=== PATIENT | male | born 1940 | race Caucasian/White ===

== ENCOUNTER → 2017-01-13 | Outpatient (CLI) | payer MEDICARE ==
[~2017-01-13] MED LIST: ALBUTEROL0.09 MG/A2 INH; ALLOPURINOL100 MG PO; AMOXIL500 MG PO; ASPERDRINK81 MG PO; ASPIRIN325 MG PO; ATENOLOL100 MG PO; CLONIDINE0.1 MG PO; COUMADIN5 M2 PO; Coumadin5 MG PO; HYDRALAZINE HCL25 MG PO; Hydralazine Hyd25 MG PO; K-Dur 20MEQ20 MEQ PO; LANTUS100 U/ML SC; LASIX20 MG PO; LEVAQUIN750 M1 PO; LISINOPRIL10 M1 PO; Magnesium Oxid400 MG PO; NORVASC5 MG PO; PREDNISONE10 MG PO; PRILOSEC20 MG PO; Ventolin 02.5 MG/3 M NEB; XANAX1 MG PO; XARE15TA PO; ZITHROMAX Z PA250 MG PO
[2017-01-13 14:00] LABS: BILIRUBIN NEGATIVE (NEGATIVE); BLOOD NEGATIVE (NEGATIVE); CLARITY SL CLOUDY (CLEAR); COLOR YELLOW (YELLOW); GLUCOSE NEGATIVE (NEGATIVE); KETONE NEGATIVE (NEGATIVE); LEUKO ESTERASE NEGATIVE (NEGATIVE); NITRITE NEGATIVE (NEGATIVE); PH 5.5 (5.0-9.0); PROTEIN 2+ (NEGATIVE); UROBILINOGEN 0.2 E.U./dl (0.2-1.0)
[2017-01-13 14:03] LABS: BASO % 0.3 % (0.0-1.0); EOS # 0.2 10*3/uL (0.0-0.4); HEMOGLOBIN 13.5 g/dl (14.0-18.0); LYMPH # 1.6 10*3/uL (1.3-4.4); LYMPH % 21.4 % (27.0-41.0); MEAN CELL VOLUME 98.8 fl (80.0-94.0); MEAN CORPUSCULAR HGB 33.3 pg (27.0-31.0); MEAN CORPUSCULAR HGB CONC 33.8 g/dl (33.0-37.0); MEAN PLATELET VOLUME 10.1 fl (9.6-12.3); MONO # 0.5 10*3/uL (0.1-1.0); MONO % 6.3 % (3.0-9.0); NEUT # 5.2 10*3/uL (2.3-7.9); NEUT % 69.5 % (47.0-73.0); PLATELET COUNT AUTOMATED 204 10*3/uL (130-400); RED BLOOD COUNT 4.05 10*6/uL (4.50-5.90); RED CELL DISTRI WIDTH 12.8 % (0-14.5); WHITE BLOOD COUNT 7.5 10*3/uL (4.8-10.8)
[2017-01-13 14:06] LABS: BACTERIA 2+; RBC 0-2 rbc/hpf (0-2)
[2017-01-13 14:08] LABS: URINE TP/CRE RATIO 2.9 (<0.21)
[2017-01-13 14:14] LABS: ALBUMIN 3.5 gm/dl (3.1-4.5); BILIRUBIN, TOTAL 0.9 mg/dl (0.2-1.0); PHOSPHOROUS 3.9 mg/dL (2.5-4.9); POTASSIUM 4.9 mmol/L (3.5-5.1); TOTAL PROTEIN 7.7 gm/dL (6.4-8.2)
== END | disposition home or self-care (01) ==
LOC: LAB 13:23
PROVIDERS: Internal Medicine Nephrology
DX: I12.9 Hypertensive chronic kidney disease with stage 1 through stage 4 chronic kidney disease, or unspecified chronic kidney disease (principal); E11.21 Type 2 diabetes mellitus with diabetic nephropathy; E11.22 Type 2 diabetes mellitus with diabetic chronic kidney disease; N18.4 Chronic kidney disease, stage 4 (severe); R80.0 Isolated proteinuria

== ENCOUNTER → 2018-12-27 | Outpatient (CLI) | payer MEDICARE ==
[~2018-12-27] MED LIST changes: -ASPIRIN325 MG PO; +ASPIRIN81 M1 PO; +Lasix80 MG PO; +PEPCID20 MG PO; +SODIUM BICARBO650 MG PO; +ZITHROMAX500 MG PO
[2018-12-27 13:40] VITALS: BP 135/74
[2018-12-27 14:06] LABS: BASO % 0.2 % (0.0-1.0); HEMATOCRIT 30.1 % (42.0-52.0); LYMPH # 0.4 10*3/uL (1.3-4.4); LYMPH % 6.6 % (27.0-41.0); MEAN CELL VOLUME 101.3 fl (80.0-94.0); MEAN CORPUSCULAR HGB 33.7 pg (27.0-31.0); MEAN CORPUSCULAR HGB CONC 33.2 g/dl (33.0-37.0); MEAN PLATELET VOLUME 10.7 fl (9.6-12.3); MONO # 0.4 10*3/uL (0.1-1.0); MONO % 7.5 % (3.0-9.0); NEUT # 4.7 10*3/uL (2.3-7.9); NEUT % 85.2 % (47.0-73.0); PLATELET COUNT AUTOMATED 77 10*3/uL (130-400); RED BLOOD COUNT 2.97 10*6/uL (4.50-5.90); RED CELL DISTRI WIDTH 13.9 % (0-14.5); WHITE BLOOD COUNT 5.5 10*3/uL (4.8-10.8)
[2018-12-27 14:42] LABS: ALBUMIN 3.6 gm/dl (3.1-4.5); CREATININE 4.42 mg/dL (0.70-1.30); PHOSPHOROUS 3.7 mg/dL (2.5-4.9); POTASSIUM 3.7 mmol/L (3.5-5.1)
[2018-12-27 15:03] LABS: VITAMIN D, 25-HYDROXY 28.2 ng/mL (30-100)
[2018-12-27 15:04] LABS: FERRITIN 233.7 ng/mL (22.0-322.0); PTH INTACT 455.4 pg/mL (18.5-88.0)
[2018-12-27 15:25] LABS: BILIRUBIN NEGATIVE (NEGATIVE); BLOOD NEGATIVE (NEGATIVE); CLARITY CLEAR (CLEAR); COLOR YELLOW (YELLOW); GLUCOSE NEGATIVE (NEGATIVE); KETONE NEGATIVE (NEGATIVE); LEUKO ESTERASE NEGATIVE (NEGATIVE); NITRITE NEGATIVE (NEGATIVE); UROBILINOGEN 0.2 E.U./dl (0.2-1.0)
[2018-12-27 15:34] LABS: BACTERIA 1+; EPITHELIAL CELLS 0-2; URINE CREATININE RANDOM 51.2 mg/dL; WBC 0-2 wbc/hpf (0-5)
[2018-12-28 05:11] LABS: HEPATITIS B SURFACE AB 006395 Non Reactive (.); HEPATITIS B SURFACE AG Negative (Negative)
== END | disposition home or self-care (01) ==
LOC: LAB 13:22
PROVIDERS: Internal Medicine Nephrology
DX: Z01.89 Encounter for other specified special examinations (principal); I12.0 Hypertensive chronic kidney disease with stage 5 chronic kidney disease or end stage renal disease; E11.22 Type 2 diabetes mellitus with diabetic chronic kidney disease; D63.1 Anemia in chronic kidney disease; N18.5 Chronic kidney disease, stage 5; E11.21 Type 2 diabetes mellitus with diabetic nephropathy; N25.81 Secondary hyperparathyroidism of renal origin; R60.9 Edema, unspecified; E87.2 Acidosis; Z79.899 Other long term (current) drug therapy

== ENCOUNTER → 2019-01-24 | Outpatient (CLI) | payer MEDICARE ==
[2019-01-24 12:13] VITALS: BP 109/61
== END | disposition home or self-care (01) ==
LOC: INJECTION 01:11
DX: I13.0 Hypertensive heart and chronic kidney disease with heart failure and stage 1 through stage 4 chronic kidney disease, or unspecified chronic kidney disease (principal); E11.22 Type 2 diabetes mellitus with diabetic chronic kidney disease; E11.21 Type 2 diabetes mellitus with diabetic nephropathy; N18.9 Chronic kidney disease, unspecified; I50.9 Heart failure, unspecified; D63.1 Anemia in chronic kidney disease; I48.91 Unspecified atrial fibrillation; N25.81 Secondary hyperparathyroidism of renal origin; Z79.899 Other long term (current) drug therapy

== ENCOUNTER → 2019-01-24 | Outpatient (CLI) | payer MEDICARE ==
[2019-01-24 12:32] LABS: BASO % 0.2 % (0.0-1.0); EOS # 0.1 10*3/uL (0.0-0.4); EOS % 1.1 % (1.0-4.0); HEMATOCRIT 37.6 % (42.0-52.0); HEMOGLOBIN 12.3 g/dl (14.0-18.0); LYMPH # 2.1 10*3/uL (1.3-4.4); LYMPH % 25.9 % (27.0-41.0); MEAN CELL VOLUME 98.7 fl (80.0-94.0); MEAN CORPUSCULAR HGB 32.3 pg (27.0-31.0); MEAN CORPUSCULAR HGB CONC 32.7 g/dl (33.0-37.0); MEAN PLATELET VOLUME 10.4 fl (9.6-12.3); MONO # 0.8 10*3/uL (0.1-1.0); MONO % 9.7 % (3.0-9.0); NEUT # 5.1 10*3/uL (2.3-7.9); NEUT % 62.7 % (47.0-73.0); PLATELET COUNT AUTOMATED 204 10*3/uL (130-400); RED BLOOD COUNT 3.81 10*6/uL (4.50-5.90); RED CELL DISTRI WIDTH 14.5 % (0-14.5); WHITE BLOOD COUNT 8.2 10*3/uL (4.8-10.8)
[2019-01-24 13:01] LABS: ALBUMIN 3.6 gm/dl (3.1-4.5); POTASSIUM 3.9 mmol/L (3.5-5.1)
[2019-01-24 13:04] LABS: CREATININE 5.25 mg/dL (0.70-1.30); PHOSPHOROUS 4.7 mg/dL (2.5-4.9)
[2019-01-24 13:17] LABS: FERRITIN 83.9 ng/mL (22.0-322.0); PTH INTACT 412.9 pg/mL (18.5-88.0); VITAMIN D, 25-HYDROXY 33.7 ng/mL (30-100)
[2019-01-24 13:31] LABS: BILIRUBIN NEGATIVE (NEGATIVE); BLOOD NEGATIVE (NEGATIVE); CLARITY SL CLOUDY (CLEAR); COLOR YELLOW (YELLOW); GLUCOSE NEGATIVE (NEGATIVE); KETONE NEGATIVE (NEGATIVE); LEUKO ESTERASE NEGATIVE (NEGATIVE); NITRITE NEGATIVE (NEGATIVE); PH 5.5 (5.0-9.0); SPECIFIC GRAVITY 1.015 (1.005-1.030); UROBILINOGEN 0.2 E.U./dl (0.2-1.0)
[2019-01-24 15:07] LABS: CALCIUM OXALATE CRYSTALS TRACE
[2019-01-25 05:06] LABS: HEPATITIS B SURFACE AB 006395 Non Reactive (.); HEPATITIS B SURFACE AG Negative (Negative)
== END | disposition home or self-care (01) ==
LOC: LAB 11:28
PROVIDERS: Internal Medicine Nephrology
DX: E11.21 Type 2 diabetes mellitus with diabetic nephropathy (principal); E11.22 Type 2 diabetes mellitus with diabetic chronic kidney disease; D63.1 Anemia in chronic kidney disease; N18.5 Chronic kidney disease, stage 5; R53.83 Other fatigue; Z79.899 Other long term (current) drug therapy

== ENCOUNTER → 2019-02-28 | Outpatient (CLI) | payer MEDICARE ==
[2019-02-28 12:04] LABS: BASO % 0.4 % (0.0-1.0); EOS # 0.1 10*3/uL (0.0-0.4); HEMATOCRIT 30.1 % (42.0-52.0); HEMOGLOBIN 9.7 g/dl (14.0-18.0); LYMPH % 12.9 % (27.0-41.0); MEAN CELL VOLUME 97.7 fl (80.0-94.0); MEAN CORPUSCULAR HGB 31.5 pg (27.0-31.0); MEAN CORPUSCULAR HGB CONC 32.2 g/dl (33.0-37.0); MEAN PLATELET VOLUME 9.9 fl (9.6-12.3); MONO # 0.7 10*3/uL (0.1-1.0); MONO % 8.4 % (3.0-9.0); NEUT # 6.1 10*3/uL (2.3-7.9); NEUT % 76.8 % (47.0-73.0); PLATELET COUNT AUTOMATED 194 10*3/uL (130-400); RED BLOOD COUNT 3.08 10*6/uL (4.50-5.90); RED CELL DISTRI WIDTH 14.6 % (0-14.5); WHITE BLOOD COUNT 7.9 10*3/uL (4.8-10.8)
[2019-02-28 12:37] LABS: ALBUMIN 3.6 gm/dl (3.1-4.5); CREATININE 4.9 mg/dL (0.70-1.30); PHOSPHOROUS 4.4 mg/dL (2.5-4.9); POTASSIUM 3.6 mmol/L (3.5-5.1)
[2019-03-05 09:50] LABS: HEPATITIS B SURFACE AB 006395 Non Reactive (.); HEPATITIS B SURFACE AG Negative (Negative); HEPATITIS C VIRUS ANTIBODY <0.1 s/co (0.0-0.9)
== END | disposition home or self-care (01) ==
LOC: LAB 11:31
PROVIDERS: Internal Medicine Nephrology
DX: Z11.59 Encounter for screening for other viral diseases (principal); N18.5 Chronic kidney disease, stage 5; R53.83 Other fatigue

== ENCOUNTER → 2019-03-24 | Outpatient (CLI) | payer MEDICARE ==
[2019-03-24 12:39] LABS: BILIRUBIN NEGATIVE (NEGATIVE); BLOOD NEGATIVE (NEGATIVE); CLARITY CLEAR (CLEAR); COLOR YELLOW (YELLOW); GLUCOSE NEGATIVE (NEGATIVE); KETONE NEGATIVE (NEGATIVE); LEUKO ESTERASE NEGATIVE (NEGATIVE); NITRITE NEGATIVE (NEGATIVE); PH 6.5 (5.0-9.0); UROBILINOGEN 0.2 E.U./dl (0.2-1.0)
[2019-03-24 12:41] LABS: BASO % 0.4 % (0.0-1.0); EOS # 0.4 10*3/uL (0.0-0.4); EOS % 4.6 % (1.0-4.0); HEMATOCRIT 31.1 % (42.0-52.0); HEMOGLOBIN 9.6 g/dl (14.0-18.0); LYMPH # 1.1 10*3/uL (1.3-4.4); LYMPH % 14.8 % (27.0-41.0); MEAN CELL VOLUME 99.4 fl (80.0-94.0); MEAN CORPUSCULAR HGB 30.7 pg (27.0-31.0); MEAN CORPUSCULAR HGB CONC 30.9 g/dl (33.0-37.0); MEAN PLATELET VOLUME 10.7 fl (9.6-12.3); MONO # 0.8 10*3/uL (0.1-1.0); MONO % 10.5 % (3.0-9.0); NEUT # 5.3 10*3/uL (2.3-7.9); NEUT % 69.4 % (47.0-73.0); PLATELET COUNT AUTOMATED 200 10*3/uL (130-400); RED BLOOD COUNT 3.13 10*6/uL (4.50-5.90); RED CELL DISTRI WIDTH 14.8 % (0-14.5); WHITE BLOOD COUNT 7.7 10*3/uL (4.8-10.8)
[2019-03-24 12:45] LABS: EPITHELIAL CELLS 16-20; RBC 0-2 rbc/hpf (0-2); WBC 0-2 wbc/hpf (0-5)
[2019-03-24 13:05] LABS: ALBUMIN 3.8 gm/dl (3.1-4.5); POTASSIUM 3.8 mmol/L (3.5-5.1)
[2019-03-24 13:14] LABS: CREATININE 5.39 mg/dL (0.70-1.30); PHOSPHOROUS 4.5 mg/dL (2.5-4.9)
[2019-03-24 13:37] LABS: FERRITIN 56.9 ng/mL (22.0-322.0); PTH INTACT 309.5 pg/mL (18.5-88.0); VITAMIN D, 25-HYDROXY 41.7 ng/mL (30-100)
[2019-03-25 06:10] LABS: HEPATITIS B SURFACE AB 006395 Non Reactive (.); HEPATITIS B SURFACE AG Negative (Negative)
== END | disposition home or self-care (01) ==
LOC: LAB 11:17
PROVIDERS: Internal Medicine Nephrology
DX: E11.22 Type 2 diabetes mellitus with diabetic chronic kidney disease (principal); E11.21 Type 2 diabetes mellitus with diabetic nephropathy; N18.5 Chronic kidney disease, stage 5; D63.1 Anemia in chronic kidney disease; N25.81 Secondary hyperparathyroidism of renal origin; Z79.899 Other long term (current) drug therapy; R53.83 Other fatigue

== ENCOUNTER 2019-04-18 15:56 | Inpatient (IN) | payer MEDICARE ==
[~2019-04-18] VITALS: Ht 187.9 cm; Wt 103.9 kg
--- NOTE | ~2019-04-18 | CON ---
[place], [place] REPORT OF CONSULTATION NAME: [id number] UNIT #: [id number] ROOM: 410 DOCTOR: PIPE SPENCER BIRTHDATE: [birth year] DOS: 04/18/2019 RENAL CONSULTATION REASON FOR CONSULTATION: Chronic kidney disease. HISTORY OF PRESENT ILLNESS: The patient is a pleasant 78-year-old male with prior history of atrial fibrillation. Apparently, he denies this as a history, but it is clearly documented as part of his history, and in fact, he is in atrial fibrillation at present, and history of hypertension, type 2 diabetes mellitus and stage 5 chronic kidney disease, for which he follows with Dr. Torres in our office. He has had a fistula created several months ago in his left arm. He has not required renal replacement therapy as of yet. He presented to this institution at the request of his daughter per the patient today due to dyspnea. The patient states this has been an ongoing issue for the past year to the point where he can only walk a very short distance, perhaps the length of the room before becoming short of breath with markedly fatigue. Again, he describes this as being something that has been present for the past year, though when I pointed out to him that he did not bring this to anyone's attention when seen by Dr. Torres recently in a recent office visit in December which followed a hospital admission several weeks earlier. He claims that he was feeling well then, but then shortly afterward symptoms recurred. He notes he is compliant with his diuretics, but does not follow his fluid restrictions nor does he limit his sodium intake in his diet that he has been instructed to do. He does state he has been urinating less well than usual over the past several months, which coincides along with the above described fatigue and also describes a decreased appetite over the same length of time. For the above symptoms, again seemingly coinciding when he describes worsening shortness of breath with exertion. He denies any other specific uremic symptoms. He denies any URI symptoms, fevers, chills, rigors or diaphoresis. When seen in the ED, he had a chest x-ray performed, which showed pulmonary edema. EKG showed atrial fibrillation. He was afebrile, hemodynamically stable. Admitting lab work showed a white count of 7.9 and hemoglobin 9.3. He had a potassium of 4.0, bicarbonate of 24, glucose of 124 with a BUN and creatinine of 117 and 8.87. He is currently seen and the initial troponin was 0.145. He is currently seen in the Emergency Room, lying flat in bed and states he feels fine, but again notes that he is typically fine with rest and with recumbency. PAST MEDICAL HISTORY: See above. ALLERGIES: Listed to IODINE. CURRENT MEDICATIONS: Heparin 5000 units subcutaneously b.i.d. SOCIAL HISTORY: He resides at home. FAMILY HISTORY: Noncontributory. REVIEW OF SYSTEMS: Please see HPI. Full 10-point review of systems was performed and was unremarkable except noted in the HPI. [place], [place] REPORT OF CONSULTATION NAME: WALDO FARMER UNIT #: [id number] ROOM: [employer] DOCTOR: SPENCER BETANCUR DO BIRTHDATE: [birth year] PHYSICAL EXAMINATION: VITAL SIGNS: Blood pressure 138/70, pulse 73, respiration 21, temperature is 97.9 degrees Fahrenheit. GENERAL APPEARANCE: An obese male, awake, alert, oriented x 3, currently in no apparent distress. HEENT: Conjunctivae are pink and moist. Oral mucosa is pink and moist. NECK: There is no JVD or carotid bruit, thyromegaly or adenopathy appreciated. LUNGS: Diminished at the bases, but otherwise clear to auscultation and percussion. HEART: Irregularly irregular. An S3 or rub could not be appreciated. Murmur was not appreciated on examination. ABDOMEN: Soft, protuberant, positive bowel sounds x 4, nontender, without CVA tenderness noted. No rebound, guarding or rigidity noted. No abdominal or flank bruits appreciated. NEUROLOGIC: Grossly nonfocal. No asterixis. EXTREMITIES: No clubbing or cyanosis. He has anasarca appreciated. Pulses are +2 bilateral radial as well as dorsalis pedis. SKIN: Warm and dry. There is a left arm AV fistula noted with thrill and bruit present. LABORATORY DATA: From today, WBC 7.9, hemoglobin 9.3, hematocrit 29.7, platelets 191,000. Sodium is 138, potassium 4.0, chloride 98, CO2 of 24, BUN 117, creatinine 8.9, glucose is 124, magnesium 2.9, calcium is 8.6, albumin of 3.5, total protein 7.8. ALT is 12, AST is 19, alkaline phosphatase is 85, total bilirubin 0.6. ASSESSMENT AND PLAN: 1. Chronic kidney disease, stage V. Volume is currently increased. He appears well compensated at rest, just received 80 mg of intravenous Lasix. Electrolytes are satisfactory. Equivocal uremic signs and symptoms. 2. Hypoxemia, appears to be related to volume overload. Consider treating momentarily with intravenous Lasix. 3. Hypertension. Blood pressure is under satisfactory control. RECOMMENDATIONS: Agree with ongoing management. We would aggressively diurese this patient; however, I would have a low threshold to initiate renal replacement therapy in this patient, and in fact, I suspect this will be needed as mentioned, but we will continue to treat conservatively for the moment. Thank you for allowing us to participate in the care of the patient. [place], [place] REPORT OF CONSULTATION NAME: WALDO FARMER UNIT #: [id number] ROOM: 410 DOCTOR: SPENCER BETANCUR DO BIRTHDATE: [birth year] SPENCER BETANCUR DO CM:CONSTR:REPORT OF CONSULTATION [id number] SANJIV [email or web address].NORA
--- NOTE | ~2019-04-18 | EKG ---
[place], [place] ELECTROCARDIOGRAM REPORT NAME: WALDO FARMER UNIT #: [id number] ROOM: 407 DOCTOR: MARY ANNE DRAFT REPORT BIRTHDATE: [birth year] [facility] [place] [facility] Test Date: 2019-04-18 Test Time: 21:41:21 Pat Name: WALDO FARMER Department: Room: 407 Gender: M Cow Buyer: Magdalene Story : 1940 Requested By: RAJANI VIRAMONTES Order Number: [id number] Reading MD: Dannie Wilkinson Measurements Intervals [place] Rate: 76 P: [place]: QRS: 64 QRSD: 104 T: 241 QT: 549 QTc: 618 Interpretive Statements Atrial fibrillation Low voltage, extremity leads Nonspecific T abnormalities, lateral leads Prolonged QT interval Compared to ECG 12/08/2018 18:57:49 T-wave abnormality now present Electronically Signed On 04-20-2019 11:08:37 PDT by Dannie Wilkinson CM:EKGRPT:ELECTROCARDIOGRAM REPORT 1108 RAJANI RIVERA DRAFT REPORT RAJANI VIRAMONTES DO
--- NOTE | ~2019-04-18 | EKG ---
[place], [place] ELECTROCARDIOGRAM REPORT NAME: WALDO FARMER UNIT #: [id number] ROOM: 407 DOCTOR: MARY ANNE DRAFT REPORT BIRTHDATE: [birth year] [facility] Test Date: 2019-04-18 Test Time: 18:54:19 Pat Name: WALDO FARMER Department: Room: 407 Gender: M Direct Marketing Analyst: Magdalene Story : 1940 Requested By: RAJANI VIRAMONTES Order Number: [id number] Reading MD: Dannie Wilkinson Measurements Intervals [place] Rate: 76 P: [place]: QRS: 65 QRSD: 100 T: -58 QT: 500 QTc: 563 Interpretive Statements Atrial fibrillation Ventricular premature complex Low voltage, extremity leads Borderline repolarization abnormality Prolonged QT interval Compared to ECG 12/08/2018 18:57:49 Ventricular premature complex(es) now present Electronically Signed On 04-20-2019 11:07:51 PDT by Dannie Wilkinson CM:EKGRPT:ELECTROCARDIOGRAM REPORT [id number] RAJANI RIVERA DRAFT REPORT RAJANI VIRAMONTES DO
--- NOTE | ~2019-04-18 | PR ---
[place], [place] PROGRESS NOTE NAME: WALDO FARMER UNIT #: [id number] ROOM: 410 DOCTOR: TRE QUIÑONEZ MD BIRTHDATE: [birth year] DOS: 04/22/2019 REASON FOR VISIT: Pulmonary edema, atrial fibrillation. HISTORY OF PRESENT ILLNESS: The patient is feeling better. He had dialysis yesterday and today. Denies any chest pain or palpitation, no PND, no orthopnea, no palpitations or dizziness. REVIEW OF SYSTEMS: Review of 10 systems negative except as mentioned above. PHYSICAL EXAMINATION: VITAL SIGNS: Blood pressure 127/62, pulse 70, respiratory rate 18, weight 105 kilos, BMI 30. RHYTHM STRIPS: The patient in atrial fibrillation with controlled ventricular rate. GENERAL: Alert, comfortable, in no acute distress. HEENT: Pupils are round and equal. No jaundice. Tongue was moist and pharynx clear. CHEST: Symmetrical, nontender. LUNGS: Clear to auscultation, slightly diminished at bases. HEART: Irregularly irregular, grade 1/6 systolic murmur. ABDOMEN: Benign, nontender. Bowel sounds normal. EXTREMITIES: Showed 1+ edema bilaterally. Distal pulses palpable. SKIN: Warm and dry. No cyanosis, no clubbing. RECTAL: Deferred. GENITOURINARY: Deferred. NEUROLOGIC: The patient is alert with no focal neurologic deficit. REVIEW OF DIAGNOSTIC TESTS, LABS AND MEDICATIONS: Reviewed. Hemoglobin is 7.9, BUN 88, creatinine 7.3. IMPRESSION: 1. Acute diastolic heart failure, has a pulmonary edema, improved. 2. Chronic atrial fibrillation, controlled ventricular rate. The patient was not on oral anticoagulation due to intolerance in the past, on aspirin. 3. End-stage renal disease, on hemodialysis. 4. Hypertension, stable. 5. Chronic anemia. RECOMMENDATIONS: 1. The patient is stable from the cardiac standpoint. 2. Cardiology will see as needed and he will follow up with [facility] in 2 to 4 weeks after discharge. 3. The patient and his who is at bedside and all questions were answered. [place], [place] PROGRESS NOTE NAME: WALDO FARMER UNIT #: [id number] ROOM: 410 DOCTOR: TRE QUIÑONEZ MD BIRTHDATE: [birth year] TRE QUIÑONEZ MD CM:EVANGELISTA [phone] TRE QUIÑONEZ MD 04/23/19 0510 interface
--- NOTE | ~2019-04-18 | EKG ---
[place], [place] ELECTROCARDIOGRAM REPORT NAME: WALDO FARMER UNIT #: [id number] ROOM: 407 DOCTOR: MARY ANNE DRAFT REPORT BIRTHDATE: [birth year] [facility] Test Date: 2019-04-18 Test Time: 15:59:10 Pat Name: WALDO FARMER Department: Room: 407 Gender: M Library Circulation Department Chief: : 1940 Requested By: RAJANI VIRAMONTES Order Number: [id number] Reading MD: Dannie Wilkinson Measurements Intervals [place] Rate: 81 P: [place]: QRS: 68 QRSD: 104 T: QT: 443 QTc: 515 Interpretive Statements Atrial fibrillation Low voltage, extremity leads Borderline repolarization abnormality Prolonged QT interval Compared to ECG 12/08/2018 18:57:49 No significant changes Electronically Signed On 04-21-2019 11:52:10 PDT by Dannie Wilkinson CM:EKGRPT:ELECTROCARDIOGRAM REPORT [id number] RAJANI RIVERA DRAFT REPORT RAJANI VIRAMONTES DO
--- NOTE | ~2019-04-18 | PR ---
[place], [place] PROGRESS NOTE NAME: WALDO FARMER UNIT #: [id number] ROOM: 407 DOCTOR: TRE QUIÑONEZ MD BIRTHDATE: [birth year] DOS: 04/20/2019 CARDIOLOGY PROGRESS NOTE REASON FOR VISIT: Congestive heart failure. HISTORY OF PRESENT ILLNESS: The patient is somewhat feeling better. He did make some urine since yesterday. Less short of breath. No PND, no orthopnea. No chest pains, no palpitations or dizziness. No syncope. No nausea or vomiting. REVIEW OF SYSTEMS: Review of 10 systems negative except as mentioned above. PHYSICAL EXAMINATION: VITAL SIGNS: Blood pressure 121/56, pulse 62, respiratory rate was 16, weight 102 kilos. RHYTHM STRIPS: The patient in sinus rhythm. PHYSICAL EXAMINATION: GENERAL: Alert, comfortable, in no acute distress. HEENT: Pupils are round and equal. No jaundice. Tongue was moist and pharynx clear. NECK: Supple, no distended neck veins. No carotid bruit. CHEST: Symmetrical, nontender. LUNGS: A few scattered rhonchi, diminished at bases. HEART: Regular rate and rhythm, no S3, no palpable thrills. ABDOMEN: Nontender. Bowel sounds normal. EXTREMITIES: Showed 2+ pitting edema. Distal pulses palpable. SKIN: Warm and dry. No cyanosis, no clubbing. RECTAL: Deferred. GENITOURINARY: Deferred. NEUROLOGIC: Alert with no focal neurologic deficit. MEDICATIONS AND LABS: Reviewed. IMPRESSION: 1. Acute heart failure with preserved ejection fraction due to volume overload. 2. End-stage renal disease. 3. Paroxysmal atrial fibrillation. 4. Hypertension. RECOMMENDATIONS: 1. Continue current medications. 2. The patient was not on oral anticoagulation due to intolerance. 3. ____. 4. No further cardiac testing except outpatient Lexiscan stress test in about a month. 5. Cardiology will see as needed. 6. The patient will be undergoing hemodialysis for fluid removal. [place], [place] PROGRESS NOTE NAME: WALDO FARMER UNIT #: [id number] ROOM: 407 DOCTOR: TRE QUIÑONEZ MD BIRTHDATE: [birth year] The above treatment plans were discussed with the patient and his family member who is at bedside. TRE QUIÑONEZ MD CM:EVANGELISTA [id number] TRE QUIÑONEZ MD 04/21/19 1151 interface
--- NOTE | ~2019-04-18 | CON ---
[place], [place] REPORT OF CONSULTATION NAME: WALDO FARMER UNIT #: [id number] ROOM: 407 DOCTOR: OLAMIDE KRISHNATRE BIRTHDATE: [birth year] DOS: 04/19/2019 CARDIOLOGY CONSULTATION REASON FOR CONSULTATION: Congestive heart failure. HISTORY OF PRESENT ILLNESS: The patient is a 78-year-old with history of chronic kidney disease, anemia, atrial fibrillation presented to the Emergency Room for increasing shortness of breath for the past few weeks. He had history of chronic kidney disease. He had an AV graft/fistula done for potential dialysis in the near future. He was admitted for congestive heart failure, pulmonary edema and Cardiology consulted for further recommendations. The patient had some minimal urine output at home. He denies any PND or orthopnea. No nausea or vomiting. No chest pains. No fever and chills. No palpitation or dizziness. His main complaint is progressive shortness of breath with lower extremity edema. His shortness of breath is mostly exertional. History of atrial fibrillation few years ago. He was on "Xarelto" per his daughter. He is off of anticoagulation a couple of years ago due to severe intolerance. He denies any chest pain. Breathing is somewhat better on oxygen but still had some respiratory distress, mild. Denies any cough, fever. He denies any chest pains or PND. REVIEW OF SYSTEMS: Review of 10 systems negative except as mentioned above. PAST MEDICAL HISTORY: 1. Paroxysmal atrial fibrillation, not on oral anticoagulation due to "intolerance." 2. Chronic kidney disease, stage 5. 3. Hypertension. 4. Diastolic heart failure. 5. Gout. 6. Chronic anemia. PAST SURGICAL HISTORY: History of cholecystectomy, history of hernia repair, history of left total knee replacement. SOCIAL HISTORY: The patient does not drink, does not smoke, does not use illicit drugs. FAMILY HISTORY: Father from heart attack at age 62. ALLERGIES: Reviewed. HOME MEDICATIONS: Reviewed. PHYSICAL EXAMINATION: VITAL SIGNS: Blood pressure 110/58, pulse 72, respirations 16, weight 102 kg, BMI 29. GENERAL: Alert, comfortable, in mild respiratory distress due to shortness of breath. [place], [place] REPORT OF CONSULTATION NAME: WALDO FARMER UNIT #: [id number] ROOM: [facility] DOCTOR: OLAMIDE KRISHNA,TRE BIRTHDATE: [birth year] HEENT: Pupils are round and equal. No jaundice. Tongue was moist and pharynx clear. NECK: Supple, no distended neck veins, no carotid bruit. CHEST: Symmetrical, nontender. LUNGS: Diminished at both bases. HEART: Regular rhythm, no S3. Grade 1/6 systolic murmur at the right sternal border. No palpable thrills. ABDOMEN: Slightly distended. Bowel sounds normal, nontender. EXTREMITIES: Showed 1-2+ pitting edema bilaterally. Distal pulses are fair. SKIN: Warm and dry. No cyanosis, no clubbing. RECTAL: Deferred. GENITOURINARY: Deferred. NEUROLOGIC: The patient is alert with no focal neurologic deficit. PSYCHIATRIC: The patient is alert with good mood and affect. MUSCULOSKELETAL: No joint tenderness or swelling. REVIEW OF THE DIAGNOSTIC TESTS: EKG showed atrial fibrillation with nonspecific ST T changes. CBC, chemistry reviewed. Hemoglobin 8.6, creatinine 9.1, potassium 3.8. Cardiac troponins are 0.145, 0.142, 0.137, trending down. His troponin was elevated in 12/2018 admission. Echo from 12/2018 showed EF of 60%, LV hypertrophy. Echo from 03/2011 showed mild heart disease with EF 68%. HOME MEDICATIONS: Reviewed. IMPRESSION: 1. Acute heart failure with preserved ejection fraction. 2. Pulmonary edema. 3. Borderline elevation of troponin, likely due to his chronic kidney disease. 4. Hypertension. 5. Paroxysmal atrial fibrillation. 6. End-stage renal disease. 7. Chronic anemia. 8. Left ventricular hypertrophy. RECOMMENDATIONS: 1. Continue Lasix, monitor urine output. 2. The patient has significant urine output. He will need hemodialysis to remove the fluids. 3. The patient's family, daughter at bedside and she is aware of risk of thromboembolic events without anticoagulation for his atrial fibrillation and therefore, they would like to stay on aspirin. 4. His blood pressure and heart rates are stable. 5. No further cardiac testing at this time except I would recommend Lexiscan stress test either prior to discharge or as an outpatient. 6. The case was also discussed with stat threshing machine operator, Dr. Torres. [place], [place] REPORT OF CONSULTATION NAME: WALDO FARMER UNIT #: [id number] ROOM: [facility] DOCTOR: OLAMIDE KRISHNA,TRE BIRTHDATE: [birth year] TRE QUIÑONEZ MD CM:CONSTR:REPORT OF CONSULTATION 1701 04/20/19 1314 interface
[2019-04-18 16:00] VITALS: BP 127/62
[2019-04-18 16:18] LABS: BASO % 0.1 % (0.0-1.0); EOS % 0.5 % (1.0-4.0); HEMATOCRIT 29.7 % (42.0-52.0); HEMOGLOBIN 9.3 g/dl (14.0-18.0); LYMPH # 1.1 10*3/uL (1.3-4.4); LYMPH % 14.1 % (27.0-41.0); MEAN CELL VOLUME 93.4 fl (80.0-94.0); MEAN CORPUSCULAR HGB 29.2 pg (27.0-31.0); MEAN CORPUSCULAR HGB CONC 31.3 g/dl (33.0-37.0); MEAN PLATELET VOLUME 10.2 fl (9.6-12.3); MONO # 0.7 10*3/uL (0.1-1.0); MONO % 8.2 % (3.0-9.0); NEUT % 76.7 % (47.0-73.0); PLATELET COUNT AUTOMATED 191 10*3/uL (130-400); RED BLOOD COUNT 3.18 10*6/uL (4.50-5.90); RED CELL DISTRI WIDTH 14.7 % (0-14.5); WHITE BLOOD COUNT 7.9 10*3/uL (4.8-10.8)
[2019-04-18 16:35] LABS: ALBUMIN 3.5 gm/dl (3.1-4.5); CREATININE 8.87 mg/dL (0.70-1.30); TOTAL PROTEIN 7.8 gm/dL (6.4-8.2)
[2019-04-18 16:38] LABS: TROPONIN I 0.145 ng/ml (<0.045)
[2019-04-18 17:00] VITALS: BP 138/70
[2019-04-18 18:00] VITALS: BP 121/54
--- NOTE | 2019-04-18 19:09 | NUR ---
REPORT FROM HÉCTOR CHAIREZ AT THIS TIME
--- NOTE | 2019-04-18 19:33 | NUR ---
DR HERNANDEZ ALREADY AWARE OF CONSULT
--- NOTE | 2019-04-18 19:41 | NUR ---
CRITICAL TAKEN, TROPONIN 0.142, DR ROSS NOTIFIED.
[2019-04-18 20:39] VITALS: BP 112/49
--- NOTE | 2019-04-18 20:54 | NUR ---
PER PATIENT, CARDIOLOGY IN TO SEE PATIENT EARLIER
[2019-04-18] MEDS ORDERED: FAMOTIDINE20 M1 PO (20:59)
--- NOTE | 2019-04-18 21:00 | NUR ---
MEDICATION RECONCILLIATION COMPLETED AT THIS TIME AT BEDSIDE WITH PATIENT
--- NOTE | 2019-04-18 21:22 | NUR ---
DR HILARIA ARCHER PATIENT REQUEST FOR SLEEPING PILL.
--- NOTE | 2019-04-18 22:26 | NUR ---
DR MARK NOTIFIED OF CRITICAL TROPONIN OF 0.137
[2019-04-19 04:45] VITALS: BP 123/53
--- NOTE | 2019-04-19 04:45 | NUR ---
A 78, admitted to 4E, under the services of GEORGINA Pérez DO with a diagnosis of ACUTE CHF. Chief complaint is SHORTNESS OF BREATH. Patient arrived via bed from ER. Monitor applied. Initial assessment completed. Vital signs taken and recorded. GEORGINA PÉREZ DO notified of admission to the unit. Orders received. See assessment for past medical history, medications and allergies. Patient and/or family oriented to unit. [facility] visitation policy reviewed. Clothing/patient valuable form completed. REMI DIAZ
[2019-04-19 06:35] LABS: BASO % 0.2 % (0.0-1.0); EOS # 0.1 10*3/uL (0.0-0.4); HEMATOCRIT 27.7 % (42.0-52.0); HEMOGLOBIN 8.6 g/dl (14.0-18.0); LYMPH # 0.8 10*3/uL (1.3-4.4); LYMPH % 13.8 % (27.0-41.0); MEAN CELL VOLUME 93.6 fl (80.0-94.0); MEAN CORPUSCULAR HGB 29.1 pg (27.0-31.0); MEAN PLATELET VOLUME 10.2 fl (9.6-12.3); MONO # 0.6 10*3/uL (0.1-1.0); MONO % 10.2 % (3.0-9.0); NEUT # 4.4 10*3/uL (2.3-7.9); NEUT % 74.6 % (47.0-73.0); PLATELET COUNT AUTOMATED 165 10*3/uL (130-400); RED BLOOD COUNT 2.96 10*6/uL (4.50-5.90); RED CELL DISTRI WIDTH 14.5 % (0-14.5); WHITE BLOOD COUNT 5.9 10*3/uL (4.8-10.8)
[2019-04-19 06:45] LABS: CREATININE 9.1 mg/dL (0.70-1.30); POTASSIUM 3.8 mmol/L (3.5-5.1)
[2019-04-19 08:00] VITALS: BP 110/58
[2019-04-19 12:00] VITALS: BP 129/69
--- NOTE | 2019-04-19 12:19 | NUR ---
DR SHEEHAN IN TO SPEAK WITH PT DAUGHTER PER HER REQUEST.
--- NOTE | 2019-04-19 15:25 | NUR ---
DR HERNANDEZ ROUNDED AND SEEN PT. PER DR HERNANDEZ PT WILL PROBABLY START DIALYSIS TOMORROW.
[2019-04-19 16:00] VITALS: BP 107/52
[2019-04-19 20:00] VITALS: BP 110/52
[2019-04-20] VITALS: BP 116/56
[2019-04-20 05:32] VITALS: BP 98/46
[2019-04-20 06:35] LABS: ALBUMIN 3.3 gm/dl (3.1-4.5); CREATININE 9.33 mg/dL (0.70-1.30); PHOSPHOROUS 7.8 mg/dL (2.5-4.9); POTASSIUM 3.6 mmol/L (3.5-5.1); TOTAL PROTEIN 7.3 gm/dL (6.4-8.2)
[2019-04-20 06:39] LABS: BASO % 0.2 % (0.0-1.0); EOS # 0.1 10*3/uL (0.0-0.4); EOS % 2.3 % (1.0-4.0); HEMATOCRIT 26.9 % (42.0-52.0); HEMOGLOBIN 8.2 g/dl (14.0-18.0); LYMPH # 0.9 10*3/uL (1.3-4.4); LYMPH % 15.4 % (27.0-41.0); MEAN CELL VOLUME 93.1 fl (80.0-94.0); MEAN CORPUSCULAR HGB 28.4 pg (27.0-31.0); MEAN CORPUSCULAR HGB CONC 30.5 g/dl (33.0-37.0); MEAN PLATELET VOLUME 10.5 fl (9.6-12.3); MONO # 0.6 10*3/uL (0.1-1.0); NEUT # 4.1 10*3/uL (2.3-7.9); NEUT % 70.9 % (47.0-73.0); PLATELET COUNT AUTOMATED 158 10*3/uL (130-400); RED BLOOD COUNT 2.89 10*6/uL (4.50-5.90); RED CELL DISTRI WIDTH 14.6 % (0-14.5); WHITE BLOOD COUNT 5.7 10*3/uL (4.8-10.8)
[2019-04-20 07:00] LABS: FERRITIN 56.9 ng/mL (22.0-322.0); PTH INTACT 541.9 pg/mL (18.5-88.0); VITAMIN D, 25-HYDROXY 43.9 ng/mL (30-100)
[2019-04-20 08:00] VITALS: BP 121/56
[2019-04-20 12:00] VITALS: BP 102/50
[2019-04-20 16:00] VITALS: BP 117/53
--- NOTE | 2019-04-20 18:02 | NUR ---
PT'S FAMILY LEFT AFTER VISITING MOST OF THE DAY AND PT BECOMING ANXIOUS ABOUT WANTING TO LEAVE THE HOSPITAL. PT ASSISTED UP INTO BED. REASSURANCE GIVEN. PT MEDICATED WITH XANAX 0.5MG PO AT THIS TIME.
--- NOTE | 2019-04-20 19:52 | NUR ---
PATIENT IS RESTING IN CHAIR WITH EASY AND REGULAR RESPERS ON ROOM AIR. ASSESSMENT IS COMPLETE WITH NO C/O OR S/S OF DISTRESS NOTED. BODY ALARM IS ATTACHED AND CALL LIGHT IS WITHIN REACH, SEE SHIFT ASSESSMENT.
[2019-04-20 20:00] VITALS: BP 106/62
[2019-04-21] VITALS: BP 114/56
--- NOTE | 2019-04-21 07:34 | NUR ---
Shift chart check completed.24 HR chart check completed. Bedside report from Uriel, pt slept throughout.
[2019-04-21 07:40] LABS: BASO % 0.2 % (0.0-1.0); EOS # 0.1 10*3/uL (0.0-0.4); EOS % 1.8 % (1.0-4.0); HEMATOCRIT 26.2 % (42.0-52.0); HEMOGLOBIN 7.9 g/dl (14.0-18.0); LYMPH # 0.7 10*3/uL (1.3-4.4); LYMPH % 10.3 % (27.0-41.0); MEAN CELL VOLUME 94.9 fl (80.0-94.0); MEAN CORPUSCULAR HGB 28.6 pg (27.0-31.0); MEAN CORPUSCULAR HGB CONC 30.2 g/dl (33.0-37.0); MEAN PLATELET VOLUME 10.3 fl (9.6-12.3); MONO # 0.7 10*3/uL (0.1-1.0); MONO % 10.9 % (3.0-9.0); NEUT % 76.6 % (47.0-73.0); PLATELET COUNT AUTOMATED 137 10*3/uL (130-400); RED BLOOD COUNT 2.76 10*6/uL (4.50-5.90); RED CELL DISTRI WIDTH 14.6 % (0-14.5); WHITE BLOOD COUNT 6.5 10*3/uL (4.8-10.8)
[2019-04-21 08:08] LABS: CREATININE 9.09 mg/dL (0.70-1.30); POTASSIUM 3.7 mmol/L (3.5-5.1)
[2019-04-21 08:15] VITALS: BP 100/50
--- NOTE | 2019-04-21 09:00 | NUR ---
Fiberglass Product Tester in to talk to patient. Patient states lives at home with alone. There are few steps in the home. Physician: sloan [facility] Home health services: none Patient's level of ADLs: INDEPENDENT Patient has working utilities: all working DME: none Follow-up physician's appointment after d/c: will be made by hospitalist nurse director upon discharge Does patient want to access PORTAL?: no Discharge plan discussed with patient, daughter present, he states he lives at home alone, is independent in adls and ambulation until the last few days, drives, discussed with them a short term [facility] for [facility]hab prior to returning home, patient declined, stated he would be returning home when able, also discussed with them VNA and patient declines this also, case management will follow. DAPHNE ROD
--- NOTE | 2019-04-21 11:41 | NUR ---
DIALYSIS HAS BEEN CALLED TO GET AN ESTIMATED TIME FOR DIALYSIS AND PT AND HIS DAUGHTER HAS BEEN NOTIFIED.
[2019-04-21 12:00] VITALS: BP 105/62
--- NOTE | 2019-04-21 12:20 | NUR ---
REPORT TO DIALYSIS NURSE VIA PHONE.
--- NOTE | 2019-04-21 14:06 | NUR ---
PT WAS TRANSPORTED VIA BED TO HEMODIALYSIS ROOM AT 1230.
--- NOTE | 2019-04-21 14:15 | NUR ---
Patient not available for Occupational Therapy evaluation as he is in dialysis Sushila Carias OTR/L
--- NOTE | 2019-04-21 14:15 | NUR ---
PHYSICAL THERAPY Physical therapy evaluation attempted. Patient out of room for dialysis at this time. Will return to attempt PT evaluation at a later date. Thank you. Janae Ling,PT,DPT.
--- NOTE | 2019-04-21 15:14 | NUR ---
DAUGHTER UPDATED ON PT'S DIALYSIS TREATMENT TODAY, AND THAT ANOTHER PLANNED FOR TOMORROW MORNING.
--- NOTE | 2019-04-21 15:44 | NUR ---
ESCORTED BACK TO THE FLOOR FROM DIALYSIS.
[2019-04-21 16:00] VITALS: BP 137/68
--- NOTE | 2019-04-21 16:46 | NUR ---
I NOTIFIED DR HANNA OF THE AMOUNT OF BLADDER SCAN AND QUESTIONED LASIX ADMINISTRATION. DR HANNA WILL ADDRESS THE ISSUE.
--- NOTE | 2019-04-21 18:19 | NUR ---
PTS DAUGHTER CALLED ME, SAID SHE'D BEEN TALKING TO THE PATIENT ON THE PHONE AND REQUESTED I GIVE PT A XANAX, WHICH I DID. WHEN I ASKED HE SAID "I HAVE NO IDEA" WHEN I ASKED IF HE KNEW WHERE HE WAS. BED IS IN LOW POSITION WITH WHEELS LOCKED AND BED EXIT ALARM ACTIVE.
--- NOTE | 2019-04-21 18:27 | NUR ---
IV LASIX GIVEN AFTER DR HANNA DISCUSSED WITH RENAL RESIDENT.
--- NOTE | 2019-04-21 18:42 | NUR ---
WITHIN 15 MINUTES PT ATTEMPTING TO GET OUT OF BED, THINKS HE NEEDS TO GO TO BR. INSISTED ON AMBULATING TO THE BATHROOM, HE'S UNSTEADY. WOULDN'T LET ME STAY IN THE BATHROOM WITH HIM. I ASKED HIM TO USE THE URINAL SO IT COULD BE MEASURED BUT HE DID NOT. HE CLAIMED HE URINATED IN THE TOILET AND HAD A BOWEL MOVEMENT. I WALKED HIM BACK TO BED, MADE SURE HE HAD HIS CALL LIGHT AND REACTIVATED THE BED EXIT ALARM.
[2019-04-21 20:00] VITALS: BP 124/65
--- NOTE | 2019-04-21 20:24 | NUR ---
24 HR chart check completed.
--- NOTE | 2019-04-21 21:00 | NUR ---
RESTING IN BED WITH NO ACUTE DISTRESS NOTED. RESPIRATIONS EASY. LUNGS DIMINISHED, CLEAR. PULSE OX 90% RA. +1 PITTING BLE, TUBI-WET PROCESS MILLER APPLIED. CALL LIGHT WITHIN REACH. NO VOICED COMPLAINTS. BED ALARM IN PLACE FOR SAFETY
[2019-04-22] VITALS: BP 129/62
--- NOTE | 2019-04-22 | NUR ---
SLEEPING. NO DISTRESS NOTED. RESPIRATIONS EASY. VSS. CALL LIGHT WITHIN REACH
--- NOTE | 2019-04-22 06:00 | NUR ---
SLEPT THROUGHOUT NIGHT WITH NO DISTRESS NOTED. RESPIRATIONS EASY. CALL LIGHT WITHIN REACH. NO VOICED COMPLAINTS THIS SHIFT
--- NOTE | 2019-04-22 06:56 | NUR ---
MEDICATED WITH XANAX PRIOR TO DIALYSIS TO ASSIST WITH ANXIETY. WILL MONITOR
--- NOTE | 2019-04-22 07:15 | NUR ---
TRANSPORTED VIA BED TO DIALYSIS.
[2019-04-22 07:27] LABS: BASO % 0.2 % (0.0-1.0); EOS # 0.1 10*3/uL (0.0-0.4); EOS % 1.5 % (1.0-4.0); HEMOGLOBIN 7.9 g/dl (14.0-18.0); LYMPH # 0.7 10*3/uL (1.3-4.4); LYMPH % 11.1 % (27.0-41.0); MEAN CELL VOLUME 94.5 fl (80.0-94.0); MEAN CORPUSCULAR HGB 28.7 pg (27.0-31.0); MEAN CORPUSCULAR HGB CONC 30.4 g/dl (33.0-37.0); MEAN PLATELET VOLUME 10.8 fl (9.6-12.3); MONO # 0.7 10*3/uL (0.1-1.0); MONO % 12.4 % (3.0-9.0); NEUT # 4.4 10*3/uL (2.3-7.9); NEUT % 74.6 % (47.0-73.0); PLATELET COUNT AUTOMATED 134 10*3/uL (130-400); RED BLOOD COUNT 2.75 10*6/uL (4.50-5.90); RED CELL DISTRI WIDTH 14.6 % (0-14.5); WHITE BLOOD COUNT 5.9 10*3/uL (4.8-10.8)
--- NOTE | 2019-04-22 07:31 | NUR ---
PATIENT TO HEMODIALYSIS PRIOR TO MY RECEIVING BEDSIDE REPORT ON HIM. Shift chart check completed.24 HR chart check completed.
[2019-04-22 07:56] LABS: CREATININE 7.31 mg/dL (0.70-1.30); POTASSIUM 3.8 mmol/L (3.5-5.1)
[2019-04-22 08:09] LABS: HEPATITIS B SURFACE AG Negative (Negative); HEPATITIS C VIRUS ANTIBODY 0.1 s/co (0.0-0.9)
--- NOTE | 2019-04-22 09:00 | NUR ---
case management visits with patient, patient states he will be returning home when able. discussed with him VNA and he declines any home needs
--- NOTE | 2019-04-22 10:32 | NUR ---
CONSULT FOR GARCIA GARCIA/PALLIATIVE CARE CALLED TO PALLIATIVE CARE.
--- NOTE | 2019-04-22 10:43 | NUR ---
PT REMAINS OFF THE FLOOR IN HEMODIALYSIS.
--- NOTE | 2019-04-22 10:48 | NUR ---
REPORT FROM , PT DID WELL. REMOVED 2.3 KG. FOR ANOTHER TREATMENT TOMORROW, THEN WILL BE SUN-SUN-SUN.
--- NOTE | 2019-04-22 10:52 | NUR ---
Patient not available for occupational therapy evaluation as he is in dialysis. Sushila Carias OTR/L
--- NOTE | 2019-04-22 10:53 | NUR ---
PHYSICAL THERAPY Physical therapy evaluation attempted. Patient out of room for dialysis. Will try again at a later time/date. Thank you. Janae Ling,PT,DPT
--- NOTE | 2019-04-22 11:32 | NUR ---
Faxed palliative care order to [facility] and notified palliative care nurseCristina
--- NOTE | 2019-04-22 11:32 | NUR ---
Another Multi-Disciplinary Team meeting was held on 04/22/19, for the purpose of discharge planning. The patient was referred to the following services for follow-up:patient will be returning home in a couple days, he will have dialysis treatment on Sunday and his dialysis days will be Sunday and Sunday at the dialysis clinic [facility]
[2019-04-22 12:00] VITALS: BP 134/60
--- NOTE | 2019-04-22 12:25 | NUR ---
case management received a call from patient's daughter Oliva, she stated her dad was having difficulty getting around at home with a walker prior to being admitted to the hospital, she states he lives at home with his girlfriend and the girlfriend has a had time helping him, Oliva stated she would like her dad to go to a short term group home prior to returning home, explained to her that patient has to agree to go to a short term group home or he can't be referred to transferred to one. daughter stated understanding and stated she or her sister would be here today to talk with patient regarding going to a SNF
--- NOTE | 2019-04-22 12:41 | NUR ---
Patient/family requesting referrral to [facility] for rehab. contacted [facility] and faxed initial referral. Will fax physical therapy eval when patient is able to participate.
--- NOTE | 2019-04-22 13:12 | NUR ---
GIRLFRIEND TO THE DESK CLAIMING PT "BREATHING HARD". ON ASSESSMENT HE'S RESTING WITH HIS EYES CLOSED AND DENIES ANY DISCOMFORT OR DIFFICULTY.
--- NOTE | 2019-04-22 14:41 | NUR ---
PHYSICAL THERAPY Physical therapy evaluation completed. Full details and evaluation to follow. Low complexity skilled PT evaluation performed (60728). PT will work on strength, balance, transfers, and gait per POC. Recommend SNF at discharge. Thank you, Etta Joya,SPT Janae Ling,PT,DPT.
--- NOTE | 2019-04-22 14:41 | NUR ---
Occupational Therapy evaluation completed on 4 with full eval to follow. Precautions include fall risk acute debility, bed/chair alarm, impaired cognition,high complexity level 79139 via chart review, testing and evaluation. Recommend OT per pOC and SNF to enable return home alone at independent level. Thank you. Felice Carias OTR/l
--- NOTE | 2019-04-22 14:59 | NUR ---
THERAPY SERVICES IN TO SEE PATIENT FOR EVALUATION. HE IS IN RECLINER CHAIR AT THE BEDSIDE WITH BODY ALARM ATTACHED. HE'S READING THE NEWSPAPER.
--- NOTE | 2019-04-22 15:54 | NUR ---
PT WAS ASSISTED BY STAFF TO AMBULATE INTO THE BATHROOM. HE WILL NOT COOPERATE TO USE A URINAL. AFTER HE CAME OUT OF THE BATHROOM THERE WAS URINE ON THE TOILET AND THE FLOOR, UNMEASURABLE. HE IS BACK INTO CHAIR WITH HIS BODY ALARM ATTACHED.
[2019-04-22 16:00] VITALS: BP 136/59
--- NOTE | 2019-04-22 16:15 | NUR ---
PT REMAINS CONFUSED, NEEDING FREQUENT REMINDERS OF WHERE HE IS AND WHY HE'S HERE.
--- NOTE | 2019-04-22 17:11 | NUR ---
MEDICATED WITH TYLENOL FOR BILATERAL KNEE PAIN. TRANSFERRED TO 410 TO BE CLOSER TO THE DESK AND BECAUSE ROOM MATE WAS UPSET WHEN BED EXIT/BODY ALARM WOULD GO OFF.
--- NOTE | 2019-04-22 17:39 | NUR ---
VISITOR TO THE DESK SAYING PT NEEDS "SOMETHING STRONGER THAN TYLENOL FOR HIS KNEE PAIN". DR MAYS NOTIFIED.
--- NOTE | 2019-04-22 18:18 | NUR ---
XANAX PER FAMILY REQUEST BECAUSE PT WANTING TO LEAVE WITH THEM.
--- NOTE | 2019-04-22 18:24 | NUR ---
PT IN BED WITH WHEELS LOCKED. BED EXIT ALARM ACTIVATED.
--- NOTE | 2019-04-22 19:17 | NUR ---
IS CURRENTLY RESTING WITH HIS EYES CLOSED AND RESPIRATIONS NON-LABORED SINCE EARLIER XANAX AND TYLENOL.
[2019-04-22 20:00] VITALS: BP 106/49
--- NOTE | 2019-04-22 20:21 | NUR ---
1944 RESTING IN BED WITH EYES CLOSED. APPEARS TO BE SLEEPING. CALL LIGHT IN REACH. NO DISTRESS NOTED. HEP LOCK INTACT. BED ALARM INTACT.
--- NOTE | 2019-04-22 21:11 | NUR ---
2014 BED ALARM GOING OFF. UP TO BR WITH WALKER AND [address] AND TIME. DOES NOT ANSWER QUESTIONS APPROPRIATELY. UP TO CHAIR PER REQUEST. REFUSES TO GO BACK TO BED. 2114 [place] 1 PO FOR C/O'S BILATERAL KNEE PAIN,. BACK TO BED. SIDE RAILS UP X'S 2. BED ALARM INTACT. CALL LIGHT IN REACH.
--- NOTE | 2019-04-22 21:56 | NUR ---
EARLIER PAIN MED EFFECTIVE,. RESTING IN BED WITH EYES CLOSED. APPEARS TO BE SLEEPING.
--- NOTE | 2019-04-22 22:16 | NUR ---
REMAINS SLEEPING WITHOUT DISTRESS. CONDITION GUARDED.
[2019-04-23] VITALS: BP 120/61
--- NOTE | 2019-04-23 02:44 | NUR ---
24 HR chart check completed.
[2019-04-23 06:23] LABS: CREATININE 5.6 mg/dL (0.70-1.30)
[2019-04-23 07:18] LABS: BASO % 0.2 % (0.0-1.0); EOS # 0.1 10*3/uL (0.0-0.4); EOS % 1.6 % (1.0-4.0); HEMATOCRIT 27.8 % (42.0-52.0); HEMOGLOBIN 8.2 g/dl (14.0-18.0); LYMPH # 0.7 10*3/uL (1.3-4.4); LYMPH % 10.8 % (27.0-41.0); MEAN CELL VOLUME 96.9 fl (80.0-94.0); MEAN CORPUSCULAR HGB 28.6 pg (27.0-31.0); MEAN CORPUSCULAR HGB CONC 29.5 g/dl (33.0-37.0); MEAN PLATELET VOLUME 10.6 fl (9.6-12.3); MONO # 0.9 10*3/uL (0.1-1.0); MONO % 13.8 % (3.0-9.0); NEUT # 4.7 10*3/uL (2.3-7.9); NEUT % 73.1 % (47.0-73.0); PLATELET COUNT AUTOMATED 117 10*3/uL (130-400); RED BLOOD COUNT 2.87 10*6/uL (4.50-5.90); RED CELL DISTRI WIDTH 14.5 % (0-14.5); WHITE BLOOD COUNT 6.4 10*3/uL (4.8-10.8)
--- NOTE | 2019-04-23 07:41 | NUR ---
Additional clinicals and therapy evals faxed to [facility]. 3 night stay complete.
[2019-04-23 08:00] VITALS: BP 118/80
--- NOTE | 2019-04-23 09:00 | NUR ---
OT NOTE Patient seen for 20 minutes of occupational therapy treatment. Patient was supine in bed upon arrival and was agreeable to treatment. Patient performed bed mobility to seated EOB with supervision. While seated, patient donned socks with Max A, patient would benefit from AE education. Patient educated on safe hand placement prior to functional sit/stand with good carryover. Patient performed functional mobility around room to recliner with ww and CGA. When seated, patient required Mod A to don/doff his brief. Patient was able to assist with threading bilateral lower extremities with verbal cues for completion of task. The functional sit/stand to complete lower body dressing required Min Ax2. While seated, patient performed grooming tasks with supervision. Patient was A&O to self only. Patient was re-oriented to place and time. Patient was seated in recliner upon conclusion of OT treatment. Patient would benefit from continued OT treatment to maximize independence in ADLs and functional mobility/transfers. Lilia Thorpe, OTR/L
--- NOTE | 2019-04-23 09:24 | NUR ---
PHYSICAL THERAPY PT SIDE LYING IN BED WITH BED ALRAM ON UPON ARRIVAL. PT IDENTIFIED BY NAME AND . PT AGREED TO ALL PHYSICAL THERAPY TREATMENT THIS VISIT. PT PERFORMED SIDE LYING TO SITTING EOB WITH MODa X1 AND USE OF ONE HAND RAIL. PT PERFORMED STS FROM EOB TO FWW WITH Acosta X2 WITH VC'S FOR SAFETY AND TECHNIQUE. PT GAIT TRAINED 10FT X 1 WITH CGA AND VC'S FOR POSTURE. PT HAD A SLOW STEADY GAIT WITH A FLAT FOOT NO HEEL TOE GAIT. PT PERFORMED STS TO RELCINER WITH UNSAFE "PLOP" AND VC'S FOR SAFETY AND PROPER TECHNIQUE. PT THEN PERFORMED STS FROM RECLINER TO FWW AND THEN FWW TO RECLINER WITH Acosta X2 WITH VC'S FOR SAFETY. PT SITTING IN RECLINER WITH BODY ALARM ON AND TRAY WITH BREAKFAST INFROM OF PT. PTS CALL LIGHT ON BED TO PTS LEFT WITH IN ARMS REACH. PT REPORTS NO OTHER NEEDS AT THIS TIME. PT SEEN 1:1 FOR 16MIN. RENA MARROQUIN PTA
--- NOTE | 2019-04-23 09:31 | NUR ---
Patient has been accepted to [facility], hospital exemption complete, 3 night stay complete, patient is ok to go when medically stable for discharge.
--- NOTE | 2019-04-23 11:00 | NUR ---
case management visits with patient, two daughters are present. discussed the discharge plan of patient going to [facility] for senior living for rehab, all were in agreement. case management contacted [facility] regarding if patient has been set up to start going to their facility, per Elsie, she wanted case management to fax patient's information, patient's information faxed, will follow up on if patient is set up at [facility]
[2019-04-23 12:00] VITALS: BP 107/67
--- NOTE | 2019-04-23 12:34 | NUR ---
Medicated with norco per prn order for complaints of back pain and bl knee pain.
--- NOTE | 2019-04-23 13:15 | NUR ---
States that percocet was effective for back pain and knee pain.
--- NOTE | 2019-04-23 13:30 | NUR ---
Pt taken off floor for dialysis.
--- NOTE | 2019-04-23 16:54 | NUR ---
Pt remains off floor in dialysis.
[2019-04-23 17:00] VITALS: BP 106/42
--- NOTE | 2019-04-23 17:45 | NUR ---
Returned from dialysis. See assessment.
[2019-04-23 20:00] VITALS: BP 122/63
[2019-04-24] VITALS: BP 113/70
[2019-04-24 06:06] LABS: CREATININE 3.8 mg/dL (0.70-1.30); POTASSIUM 3.8 mmol/L (3.5-5.1)
[2019-04-24 06:08] LABS: BASO % 0.1 % (0.0-1.0); EOS % 0.4 % (1.0-4.0); HEMOGLOBIN 8.6 g/dl (14.0-18.0); LYMPH # 0.6 10*3/uL (1.3-4.4); LYMPH % 7.5 % (27.0-41.0); MEAN CORPUSCULAR HGB 28.5 pg (27.0-31.0); MEAN CORPUSCULAR HGB CONC 29.7 g/dl (33.0-37.0); MEAN PLATELET VOLUME 10.7 fl (9.6-12.3); MONO # 0.9 10*3/uL (0.1-1.0); MONO % 11.7 % (3.0-9.0); NEUT # 6.3 10*3/uL (2.3-7.9); NEUT % 79.9 % (47.0-73.0); PLATELET COUNT AUTOMATED 139 10*3/uL (130-400); RED BLOOD COUNT 3.02 10*6/uL (4.50-5.90); RED CELL DISTRI WIDTH 14.6 % (0-14.5); WHITE BLOOD COUNT 7.9 10*3/uL (4.8-10.8)
--- NOTE | 2019-04-24 08:27 | NUR ---
Dr. Mendenhall called in and updated on plan for pt. Notified that it is expected that pt will be dc today to [facility]. Reviewed case management notes.
--- NOTE | 2019-04-24 09:23 | NUR ---
OT NOTE PATIENT SEEN FOR 15 MINUTE OT SESSION THIS DAY AND IDENTIFIED BY NAME AND . PATIENT SEATED IN RECLINER UPON ARRIVAL. STS WITH CGA/MIN A. 3LO2 ON PORTABLE TANK AT THIS TIME TO COMPLETE RESTROOM ACTIVITIES. PATIENT ABLE TO COMPLETE FUNCTIONAL MOBILITY WITH WW AT CGA. FUNCTIONAL TOILET TRANSFER WITH MIN A FOR STS USING GRAB BAR. PATIENT ABLE TO DELANEY PANTS WITH MOD A TO THREAD LE'S AND PULL UP IN BACK. PATIENT STAND TO SIT REQUIRED VERBAL CUES FOR HAND PLACEMENT. PATIENT ENDED SESSION SEATED IN RECLINER WITH ALL ITEMS IN PLACE. CONTINUE CURRENT POC AND D/C PLAN TO HOME WITH SON. GAYE PERRY MAGGIE/Derick
--- NOTE | 2019-04-24 09:28 | NUR ---
PHYSICAL THERAPY Patient presented to therapy in sitting in bedside chair with chair alarm attached and 3 liters of spO2 VIA NASAL CANULA. Patient was identifed by name and on wristband. Patient gives informed consent for treatment. Patient performed sit to stand transfer with MIN A X 1 with verbal cues for pushing off armrests with hands. Patient stood at Walker for 1 minute with no LOB or other difficulty with CGA. Patient performed ambulation with Walker and CGA X 2 WITH 3 LITERS OF spO2 via nasal canula for 20' x 1 to rest room with seated restbreak. Patient then sit to stand from low chair with MOD A X 2 with verbal cues for hand placement and push off. Patient ambulated another 20' x 1 to bed side chair with CGA X 2. Patient transferred to bedside chair with MIN A X 2. Patient was left in bedside chair with call light within reach, chair alarm tested and attached to patient, and LEs elevated. Patient was 1:1 with this UTILIZATION REVIEWER for 20 minutes total. KIKE KAUR UTILIZATION REVIEWER
--- NOTE | 2019-04-24 09:30 | NUR ---
case management contacted Eben at [facility] regarding if patient is set up to go to their facility for dialysis, Eben stated he spoke to Rachelle at [facility] and confirmed that patient will go to Dialysis Sunday, and Sunday and chair time is 6am, nothing needed for case management
[2019-04-24] MEDS ORDERED: NATURE'S BLEND F1 MG PO (10:19)
[2019-04-24] MEDS ORDERED: ALPRAZOLAM0.5 M3 PO (10:19)
[2019-04-24] MEDS ORDERED: HYDROCODONE-AC1 EAC1 PO (10:19)
--- NOTE | 2019-04-24 11:01 | NUR ---
Patient is discharged to [facility], transportation scheduled for 1 PM with [facility]. NE, nursing/shop steward and daughter Malinda notified.
[2019-04-24 12:00] VITALS: BP 115/56
--- NOTE | 2019-04-24 13:02 | NUR ---
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 Significant other and daughter present at this time. IV removed.
--- NOTE | 2019-04-24 13:21 | NUR ---
Report called to Sandee at [facility].
--- NOTE | 2019-04-25 07:48 | NUR ---
OCCUPATIONAL THERAPY CO-SIGN I approve of the Occupational Therapy notes written above. ADELE KAYE OTR/Derick
--- NOTE | 2019-04-25 07:50 | NUR ---
PHYSICAL THERAPY CO-SIGN I approve of the Physical Therapy notes written above. CHAPIN KRISHNAMURTHY PT, DPT
== END 2019-04-24 13:21 | disposition other institution (70) | DRG 682 ==
LOC: ED 15:56 → 4E 17:26 → EDHOLD 17:26 → 4E 04-19 04:12
PROVIDERS: Family Medicine; Internal Medicine; Internal Medicine Nephrology; Student in an Organized Health Care Education/Training Program; ADMIT Emergency Medicine
PROC: 5A1D70Z Performance of Urinary Filtration, Intermittent, Less than 6 Hours Per Day (ICD-10-PCS; principal; 2019-04-20)
PROC: 5A1D70Z Performance of Urinary Filtration, Intermittent, Less than 6 Hours Per Day (ICD-10-PCS; 2019-04-21)
DX: N17.0 Acute kidney failure with tubular necrosis (principal); I50.33 Acute on chronic diastolic (congestive) heart failure; J96.00 Acute respiratory failure, unspecified whether with hypoxia or hypercapnia; I13.2 Hypertensive heart and chronic kidney disease with heart failure and with stage 5 chronic kidney disease, or end stage renal disease; N18.6 End stage renal disease; E83.41 Hypermagnesemia; D64.9 Anemia, unspecified; M25.569 Pain in unspecified knee; G89.29 Other chronic pain; F41.9 Anxiety disorder, unspecified; E11.65 Type 2 diabetes mellitus with hyperglycemia; I48.2 Chronic atrial fibrillation; Z96.653 Presence of artificial knee joint, bilateral; I48.91 Unspecified atrial fibrillation; Z88.9 Allergy status to unspecified drugs, medicaments and biological substances; E11.22 Type 2 diabetes mellitus with diabetic chronic kidney disease; M10.9 Gout, unspecified; E66.9 Obesity, unspecified; Z68.30 Body mass index [BMI] 30.0-30.9, adult; Z90.49 Acquired absence of other specified parts of digestive tract; Z72.89 Other problems related to lifestyle; Z83.3 Family history of diabetes mellitus; Z82.49 Family history of ischemic heart disease and other diseases of the circulatory system

== ENCOUNTER 2019-04-28 09:45 | Inpatient (IN) | payer MEDICARE ==
[2019-04-28] VITALS (7 sets, daily range): BP systolic 101–125; BP diastolic 48–63
[~2019-04-28] VITALS: Ht 185.4 cm; Wt 102.1 kg
[~2019-04-28 09:45] MED LIST changes: +ALPRAZOLAM0.5 M3 PO; +FAMOTIDINE20 M1 PO; +HYDROCODONE-AC1 EAC1 PO; +NATURE'S BLEND F1 MG PO
[2019-04-28 11:20] LABS: BASO % 0.1 % (0.0-1.0); EOS % 0.3 % (1.0-4.0); HEMATOCRIT 27.5 % (42.0-52.0); HEMOGLOBIN 8.5 g/dl (14.0-18.0); LYMPH # 0.8 10*3/uL (1.3-4.4); LYMPH % 11.5 % (27.0-41.0); MEAN CELL VOLUME 93.9 fl (80.0-94.0); MEAN CORPUSCULAR HGB CONC 30.9 g/dl (33.0-37.0); MEAN PLATELET VOLUME 10.1 fl (9.6-12.3); MONO # 0.9 10*3/uL (0.1-1.0); MONO % 13.6 % (3.0-9.0); NEUT # 4.9 10*3/uL (2.3-7.9); NEUT % 74.1 % (47.0-73.0); PLATELET COUNT AUTOMATED 170 10*3/uL (130-400); RED BLOOD COUNT 2.93 10*6/uL (4.50-5.90); RED CELL DISTRI WIDTH 15.2 % (0-14.5); WHITE BLOOD COUNT 6.7 10*3/uL (4.8-10.8)
[2019-04-28 11:30] LABS: ACT PARTIAL THROMBO TIME 26.6 SECONDS (20.0-32.1)
[2019-04-28 11:38] LABS: ALBUMIN 2.9 gm/dl (3.1-4.5); CREATININE 5.04 mg/dL (0.70-1.30); POTASSIUM 4.2 mmol/L (3.5-5.1); TOTAL PROTEIN 7.7 gm/dL (6.4-8.2)
[2019-04-28 11:58] LABS: TROPONIN I 0.067 ng/ml (<0.045)
--- NOTE | 2019-04-28 11:58 | NUR ---
TROPONIN 0.067 DR MTZ NOTIFIED
[2019-04-28] MEDS ORDERED: AMLODIPINE BESY10 MG PO (12:11)
--- NOTE | 2019-04-28 12:37 | NUR ---
UNABLE TO TRANSPORT PT TO ROOM AT THIS TIME D/T ROOM NEEDING CLEANED.
--- NOTE | 2019-04-28 13:19 | NUR ---
A 78, admitted to , under the services of GARRETT Cintron MD with a diagnosis of CHF, KIDNEY FAILURE. Chief complaint is MULTIPLE COMPLAINTS. Patient arrived via bed from ER. Monitor applied. Initial assessment completed. Vital signs taken and recorded. DR. REZA KRISHNA,GARRETT notified of admission to the unit. Orders received. See assessment for past medical history, medications and allergies. Patient and/or family oriented to unit. [facility] visitation policy reviewed. Clothing/patient valuable form completed. JAVIER MARCIAL
--- NOTE | 2019-04-28 14:59 | NUR ---
DR. HERNANDEZ ANSWERING SERVICE NOTIFIED OF CONSULT.
--- NOTE | 2019-04-28 15:33 | NUR ---
NOTIFIED OF CONSULT.
--- NOTE | 2019-04-28 23:06 | NUR ---
24 HR chart check completed.
[2019-04-29] VITALS: BP 109/84
--- NOTE | 2019-04-29 06:45 | NUR ---
BED ALARM SOUNDED, UPON ENTERING ROOM PATIENT SITTING UP AT SIDE OF BED. BLOOD NOTED ON SHEET AND GOWN. NEW SKIN TEAR FOUND ON RIGHT ELBOW AND STILL BLEEDING. PT. ALERT AND ORIENTED X3. PT. ASSURE THIS RN HE WOULD SIT AND READ HIS NEWPAPER UNTIL THIS RN RETURNED WITH WOUND CARE ITEMS. PASSED ROOM ONCE WHILE OBTAINING SUPPLIES AND PATIENT WAS STILL SITTING AT SIDE OF BED.
--- NOTE | 2019-04-29 06:45 | NUR ---
NEW SKIN TEAR NOTED ON RIGHT ELBOW. GOWN AND BEDLINENS TO BE CHANGED. WILL NOTIFIED WOUND CARE AND DOCTOR.
--- NOTE | 2019-04-29 06:50 | NUR ---
WHILE CHARTING HEARD A LOUD THUD COME FROM PATIENTS ROOM. PATIENT FOUND ON FLOOR WITH LACERATION ABOVE R EYE. PATIENT ASSISTED TO CHAIR AND VITAL SIGNS OBTAINED. PATIENT ASSISTED BACK TO BED.
--- NOTE | 2019-04-29 06:52 | NUR ---
UPON ENTERING ROOM RN WAS APPLYING PRESSURE TO RIGHT FOREHEAD EYE AREA WITH 4X4. PATIENT WAS MOVED TO CHAIR. VS OBTAINED. EXAMINED PATIENT FOR ANY OTHER WOUNDS. WHEN ASKED IF ANYTHING ELSE WAS HURT AND PT. STATED "NO, I JUST HIT MY HEAD OFF THE DOOR HANDLE". PATIENT ATTENDANTS WERE ATTENDING TO PATIENT CLEANING HIM UP AND PUTTING PATIENT BACK TO BED WITH BED ALARM. RIGHT EYE PUPIL NOT REACTING TO LIGHT PATIENT STATED THAT HE HAD A "FISHHOOK CAUGHT IN THAT EYE YEARS AGO AND IT WAS ALWAYS VERY SLUGGISH TO LIGHT". NO LOC. LARGE LACERATION NOTED ABOVE RIGHT EYE ON EYEBROW WITH EDEMA AROUND EYE ECCHYMOTIC. SCLERA WHITE. 0708 CALL NURSING ENTERPR[employer] SYSTEMS ARCHITECT NOTIFIED HER OF PT. FALL AND CALLED DR. CHOWDHURY AND NOTIFIED HIM OF FALL AND PT. CONDITION. ORDERS RECEIVED. 07 CALL DAUGHTER BEN KRUEGER AND NOTIFIED HER OF PT. FALL AND SHE SAID SHE WOULD BE HERE IN 10 MINUTES. CALLED [facility]OUND CARE NURSE AND SHE CAME TO SEE PATIENT. 07 DR. HANNA HERE AND EXAMINED PT. ORDER FOR CT ORBITS ALSO TO BE DONE. PT. WENT TO CT FOR HEAD AND ORBITS EXAM. 0735 DAUGHTER HERE ON UNIT AND AGAIN EXPLAINED WHAT HAPPEND. 0810 PATIENT WAS BACK FROM CT IN BED WITH BED ALARM ON AND DAUGHTER AT BEDSIDE. DR. LYNN HERE AND EXAMINING PATIENT FOR POSSIBLE SUTURES TO THE RIGHT EYE LACERATION.
[2019-04-29 06:55] VITALS: BP 132/61
[2019-04-29 08:00] VITALS: BP 127/72
[2019-04-29 08:07] LABS: BASO % 0.2 % (0.0-1.0); EOS # 0.1 10*3/uL (0.0-0.4); HEMATOCRIT 28.4 % (42.0-52.0); HEMOGLOBIN 8.6 g/dl (14.0-18.0); LYMPH # 0.7 10*3/uL (1.3-4.4); LYMPH % 10.7 % (27.0-41.0); MEAN CELL VOLUME 94.7 fl (80.0-94.0); MEAN CORPUSCULAR HGB 28.7 pg (27.0-31.0); MEAN CORPUSCULAR HGB CONC 30.3 g/dl (33.0-37.0); MEAN PLATELET VOLUME 9.7 fl (9.6-12.3); MONO # 0.7 10*3/uL (0.1-1.0); MONO % 11.6 % (3.0-9.0); NEUT # 4.6 10*3/uL (2.3-7.9); PLATELET COUNT AUTOMATED 195 10*3/uL (130-400); RED CELL DISTRI WIDTH 15.4 % (0-14.5); WHITE BLOOD COUNT 6.1 10*3/uL (4.8-10.8)
--- NOTE | 2019-04-29 08:08 | NUR ---
WALDO FARMER [id number] Please refer to the physician's history and physical for past medical history, comorbid conditions, and allergies. Diagnosis: CHF CONFUSION CHRONIC KIDNEY DISEASE ON CHRONIC Clarence Score: 18,AT RISK WOUND DESCRIPTIONS: Wound Number: 1 Location of the wound: right forehead above eye Type of wound: laceration Thickness: Full Size: 1.5cm x 1.0cm x 0.1cm Tunneling: none Undermining: none Sinus Tract: none Presence of Exudate: Sanguineous Amount: Moderate Color: Red Odor: None Periwound Skin Appearance: Normal Wound edges: approximated Pain (associated with wound): none at time assessment. How does patient state this happened? pt stated he hit his head off the door handle Wound Number: 2 Location of the wound: right elbow Type of wound: skin tear Thickness: Partial Size: 1.0cm x 1.0cm x 0.1cm Tunneling: none Undermining: none Sinus Tract: none Presence of Exudate: Sanguineous Amount: Light Color: Red Odor: None Periwound Skin Appearance: Normal Wound edges: approximated Pain (associated with wound): none at time of assessment How does patient state this happened? pt stated this happened from his IV site. Surface the patient is resting on: Isoflex SKIN PREVENTION RECOMMENDATION: 1. Pressure redistribution support surface as appropriate 2. Elevate heels 3. Remove boots/TEDS every shift and reapply 4. Head of bed 30 degrees as tolerated 5. Assess nutrition and hydration 6. Manage moisture 7. Avoid the use of containment devices while in bed 8. Use absorptive products on surfaces limit layers of linens on bed 9. Turn and reposition every 1-2 hours in bed and every 1 hour in chair as tolerated 10. Weight shifts every 15 minutes while up in chair 11. Offloading with pillows or device to keep heels elevated off bed 12. Monitor skin at least every shift 13. Inspect under medical devices twice a day WOUND TREATMENT RECOMMENDATIONS: Skin tear guidelines: Cleanse right elbow with nss and apply sureprep around the wound hydrogel to wound bed and cover with optifoam gentle. Consult surgery for possible repair to right forehead above the eye.
[2019-04-29 08:39] LABS: CREATININE 5.4 mg/dL (0.70-1.30); PHOSPHOROUS 5.1 mg/dL (2.5-4.9); POTASSIUM 3.9 mmol/L (3.5-5.1); TOTAL PROTEIN 7.6 gm/dL (6.4-8.2)
--- NOTE | 2019-04-29 08:40 | NUR ---
TAR CHASER spoke with the patients daughter about the family seeking new placement for the patient. She stated her first option would be [facility] then [facility]. TAR CHASER faxed new referral to [facility]. Will need new PT/OT Evals. Patients daughter also asked about [facility]. TAR CHASER provided her with the DPOA-[facility] Papers to review with the patient. TAR CHASER to dorothy. -ALBINO Conn
--- NOTE | 2019-04-29 10:01 | NUR ---
Dr. Mccoy notified of wound care recommendations.
--- NOTE | 2019-04-29 10:40 | NUR ---
PHYSICAL THERAPY Physical therapy evaluation complete, 5E. Full evaluation/details to follow. Moderate complexity PT evaluation (93688) per chart review and evaluation. PT to progress transfers, gait, LE strengthening per POC. Recommend SNF at discharge if patient willing to participate in therapy services. Thank you. Janae Ling,PT,DPT.
[2019-04-29 12:00] VITALS: BP 132/67
--- NOTE | 2019-04-29 12:02 | NUR ---
PT WAS AT [facility] PRIOR TO ADMISSION FOR REHAB. FAMILY DOES NOT WANT PT TO RETURN TO [facility]. INFORMED DAUGHTER REFERRAL WAS MADE TO [facility]. SHE STATE SHE IS GOING TO GO LOOK AT FACILITY TODAY. WILL CONTINUE TO FOLLOW.
--- NOTE | 2019-04-29 14:00 | NUR ---
Occupational Therapy evaluation completed on the 5th floor with full eval to follow. Precautions: alarm and confusion. moderate complexity level. work on functional transfers, ADLs and functional strength. Recommend SNF. Thank you for this referral, Page Witt OTR/L
--- NOTE | 2019-04-29 14:13 | NUR ---
[facility] and disease case manager Sirena Bolanos witnessed DPOA-HC papers. Patient did not complete the Living Will section. Patients daughter has not toured [facility] as of yet. Referral to [facility] has been made. -ALBINO Conn
--- NOTE | 2019-04-29 15:00 | NUR ---
Nutritional Support Services Note: Pt s/p fall wound right eyebrow area with sutures and right elbow. Appetite is good for meals. He receives a renal diet as ordered. He receives Ensure po TID with meals. Encourage intake. No other nutrition intervention needed at this time. Will follow as needed. Yuliet Mcgovern Rdn Ld
--- NOTE | 2019-04-29 15:24 | NUR ---
PHARMACY DISTRICT MANAGER faxed updates to [facility]. -ALBINO Conn
[2019-04-29 16:00] VITALS: BP 130/64
--- NOTE | 2019-04-29 18:13 | NUR ---
PT CAN BE NONCOMPLIANT UNTIL DAUGHTER COMES TO VISIT. PT HAS A MIND SET THAT ITS HIS WAY OR NO WAY. PT HAS NOT SHOWN ANY AGGRESSIVE OR COMBATIVE BEHAVIOR AT THIS TIME.
[2019-04-29 20:00] VITALS: BP 103/46
[2019-04-30] VITALS: BP 114/49
--- NOTE | 2019-04-30 01:52 | NUR ---
24 HR chart check completed.
--- NOTE | 2019-04-30 02:00 | NUR ---
SLEEPING. RESP EASY AND REG. NO ACUTE DISTRESS NOTED. BEDALARM ON
[2019-04-30 06:02] LABS: CREATININE 5.61 mg/dL (0.70-1.30); POTASSIUM 3.9 mmol/L (3.5-5.1)
[2019-04-30 06:13] LABS: EOS # 0.1 10*3/uL (0.0-0.4); EOS % 1.1 % (1.0-4.0); HEMATOCRIT 26.6 % (42.0-52.0); LYMPH # 0.6 10*3/uL (1.3-4.4); LYMPH % 10.8 % (27.0-41.0); MEAN CELL VOLUME 94.3 fl (80.0-94.0); MEAN CORPUSCULAR HGB 28.4 pg (27.0-31.0); MEAN CORPUSCULAR HGB CONC 30.1 g/dl (33.0-37.0); MEAN PLATELET VOLUME 10.1 fl (9.6-12.3); MONO # 0.8 10*3/uL (0.1-1.0); MONO % 14.4 % (3.0-9.0); NEUT # 4.1 10*3/uL (2.3-7.9); NEUT % 73.3 % (47.0-73.0); PLATELET COUNT AUTOMATED 193 10*3/uL (130-400); RED BLOOD COUNT 2.82 10*6/uL (4.50-5.90); WHITE BLOOD COUNT 5.6 10*3/uL (4.8-10.8)
--- NOTE | 2019-04-30 07:00 | NUR ---
PT. PLEASANT INTERACTIONS THROUGHOUT 12HR SHIFT. NO COMBATIVE ISSUES.
--- NOTE | 2019-04-30 07:10 | NUR ---
NORCO EFFECTIVE FOR PAIN PER PT.
--- NOTE | 2019-04-30 07:17 | NUR ---
0.5 MG XANAX GIVEN FOR ANXIETY PRIOR TO DIALYSIS.
[2019-04-30 08:00] VITALS: BP 112/68
--- NOTE | 2019-04-30 08:07 | NUR ---
Faxed updates to [facility]. Still waiting on acceptance/denial. -ALBINO Conn
--- NOTE | 2019-04-30 08:30 | NUR ---
PHYSICAL THERAPY Patient was out of his room for dialysis this morning and not available for therapy at this time. Will continue per POC this pm as able. Nico Mtz, UNDERWEAR WELTER
--- NOTE | 2019-04-30 10:00 | NUR ---
OT NOTE Attempted to see pt this A.M. for OT session and upon arrival pt was out of the room for dialysis. Will check back at a later time/date and continue with POC as able. MAGGIE Garcia/Derick
--- NOTE | 2019-04-30 10:03 | NUR ---
DR HERNANDEZ ROUNDED AND SEEN PT WHILE HE WAS BEING DIALYZED. PER HIS ORDER PT TO RECIEVE FERRLICET 125 MG DURING DIALYSIS DUE TO PT REFUSES IV ACCESS.
--- NOTE | 2019-04-30 10:08 | NUR ---
BLOOD PRESSURE MEDS D/C'D PER DR HERNANDEZ'S ORDER.SODIUM BICARB D/C'D AT THIS TIME ALSO. ORDER RECIEVED FOR LISINOPRIL 5 MG.
--- NOTE | 2019-04-30 10:40 | NUR ---
PT RESTING WITH EYES CLOSED IN DIALYSIS AT THIS TIME.PT IS COOPERATIVE WITH CARE. NON COMBATIVE AT THIS TIME.AROUSES EASILY. SPEECH IS APPROPRIATE TO SITUATION.DENIES ANY NEEDS AT THIS TIME. PLEASANT,FOLLOWS COMMANDS. BED ALARM INTACT.LINEMAN A CLASS AT BEDSIDE.CALL LIGHT IN REACH.
--- NOTE | 2019-04-30 11:30 | NUR ---
PT RETURNED TO ROOM VIA BED.DIALYSIS COMPLETE. REPORT RECIEVED. PT HAD 0.9 KILO OFF AND WAS GIVEN FERLICETT 125 MG AND EPOTIEN DURING DIALYSIS BY HD RN. DAUGHTER AT BEDSIDE. PT STABLE AT THIS TIME.BED ALARM INTACT.CALL LIGHT IN REACH.UPDATED DAUGHTER ON PLAN OF CARE.
[2019-04-30 12:00] VITALS: BP 102/42
--- NOTE | 2019-04-30 12:14 | NUR ---
PT HAS BEEN REFERRED TO [facility]. WAITING FOR APPROVAL. WILL CONTINUE TO FOLLOW.
--- NOTE | 2019-04-30 14:10 | NUR ---
PHYSICAL THERAPY Patient seen this pm 1:1 for therapy visit and was resting supine in bed upon therapist arrival. Patient identified by name / and presented with continuous O2-2L via NC. Several family members were also present during entire treatment session as patient transfers supine to sit EOB with MIN A. Patient performs several sit to stand transfers Min A and ambulates with use of walker, CGA, 15'x 1 to bathroom. Patient gaited additional 30'x 1 ad mago in room around bed, CGA, walker, demonstrating increased velocity and bouts of unsteady gait pattern. Patient also very cautious during 90 / 180 turns and needed v/c to improve safe walker / step sequence especially in tight bathroom spaces. Patient returned to supine in bed and remained with call light, tray table, telephone and bed alarm for safety. Will continue per POC as tolerated, total treatment time 16 minutes. Nico Mtz, BIOMEDICAL EQUIPMENT SPECIALIST
--- NOTE | 2019-04-30 14:26 | NUR ---
CREDIT RISK SPECIALIST IN TO TALK WITH PT AND DAUGHTER. DAUGHTER VOICING CONCERNS ABOUT PT GOING TO [facility] NOW. UPSET THAT HE IS GOING TO HAVE A ROOM MATE. EXPLAINED THAT THEY USUALLY SAVE PRIVATE ROOMS FOR [facility] PATIENTS. STATES OH THAT WON'T BE WORK IF HE WILL HAVE A ROOM MATE. ASK HER IF SHE VISITED [facility], SHE SAID SHE DID NOT. RECEIVED A CALL FROM [facility] WHILE I WAS IN ROOM. WHEN SHE GOT OFF PHONE SHE STATES SHE IS GOING TO LOOK AT [facility] NOW BUT SHE DOES NOT THINK IT IS GOING TO WORK. GEOTECHNICAL FIELD TECHNICIAN CHECKING TO SEE IF [facility] HAS ANY MALE BEDS AVAILABLE.
--- NOTE | 2019-04-30 14:32 | NUR ---
SERVICE DELIVERY ANALYST RECEIVED A CALL FROM [facility] STATING THAT THEY DO NOT HAVE MALE BEDS. ASLO THAT [facility] JUST MOVED A PT TO [facility] SO THEY MAY NOT HAVE BED EITHER. WILL TALK WITH DAUGHTER WHEN SHE RETURNS TO HOSPITAL.
--- NOTE | 2019-04-30 14:33 | NUR ---
OT NOTE Pt was seen this P.M. 1:1 for 19 minute OT session. Upon arrival pt was supine in bed with daughter at bedside. Pt identified by name and and had no complaints at this time. Pt presented to therapy with continuous 2L-O2 via NC which he remained on throughout entire session. Pt transferred supine to sit EOB with Ese for assist with UB. While sitting EOB challenged pt's dynamic sitting balance needed for increased I in self care tasks and functional transfers. Pt was able to maintain F+ sitting balance. Sit to stand completed from bed level with Ese and use of w/w for UE support. Functional mobility completed into the bathroom with CGA and use of w/w and constant verbal prompts required throughout due to poor safety awareness with the walker and being impulsive. Pt transferred on to standard commode with Ese and off with modA due to low surface. Clothing management completed with CGA. Functional mobility then completed back to the EOB where he transferred sit to supine with Ese. There he was left with call light in hand, tray table in place, bed alarm activated for safety, and daughter still at bedside. Continue with rec D/C plan to SNF. MAGGIE Garcia/Derick
--- NOTE | 2019-04-30 14:35 | NUR ---
PT RESTING IN BED,DAUGHTER AT BEDSIDE. VOICES NO NEEDS AT THIS TIME. RESPS EASY ON 2LNC.PT PLEASANT,COOPERATIVE.PT HAS NOT DISPLAYED ANY COMBATIVE OR UNCOOPERATIVE BEHAVIORS.PT IS A/O X3, SPEECH APPROPRIATE.NO C/O AT THIS TIME. BED ALARM INTACT AND CALL LIGHT IN REACH.
[2019-04-30 16:00] VITALS: BP 98/40
--- NOTE | 2019-04-30 16:32 | NUR ---
PT RESTING IN BED WITH EYES CLOSED. RESPS EASY ON 2LNC. NO DISTRESS NOTED.PT STABLE AT THIS TIME. BED ALARM INTACT. CALL LIGHT WITHIN REACH.
--- NOTE | 2019-04-30 16:59 | NUR ---
DRESSING TAKEN OF L AVF SITE PER DR HERNANDEZ'S ORDER D/T HEMATOMA AT [facility].
[2019-04-30 19:42] VITALS: BP 96/34
--- NOTE | 2019-04-30 20:54 | NUR ---
24 HR chart check completed.
[2019-04-30 21:51] VITALS: BP 95/49
--- NOTE | 2019-04-30 21:55 | NUR ---
NOTIFIED DR CHOWDHURY OF PATIENT'S LOW BLOOD PRESSURE. HE STATED THAT THERE WAS NOTHING HE COULD DO FOR IT SINCE THE PATIENT DOES NOT HAVE AN IV ACCESS. HE SAID I COULD LET DR. HERNANDEZ KNOW ABOUT THE LOW PRESSURES.
--- NOTE | 2019-04-30 22:03 | NUR ---
NOTIFIED DR. HERNANDEZ ABOUT LOW BLOOD PRESSURES. HE REQUESTED THAT BLOOD PRESSURE MEDICATIONS BE HELD FOR SYSTOLIC LESS THAN 100. ALSO NOTIFIED HIM THAT PATIENT IS STILL REFUSING AN IV AND HE SAID THAT IT WAS OK AND THAT THE PATIENT DOES NOT NEED AN IV. ASKED IF IT WAS OK IF THE PATIENT RECIEVED A XANAX FOR ANXIETY AND HE STATED THAT HE WOULD RATHER WE HOLD OFF ON GIVING XANAX DUE TO "THE PATIENT'S HISTORY OF CONFUSION" AND IT BEING "NIGHTTIME IN THE HOSPITAL" SO HE DOESNT WANT THE PATIENT TO POSSIBLY BECOME MORE CONFUSED. WILL CONTINUE TO MONITOR.
--- NOTE | 2019-04-30 23:52 | NUR ---
Patient resting quietly with no c/o discomfort. Respirations easy and regular. No overt distress. NIGHAT SULTANA
[2019-05-01] VITALS: BP 125/62
--- NOTE | 2019-05-01 03:26 | NUR ---
Upon discharge recommend patient to follow up for wound care in outpatient setting continue current wound care orders at discharging facility.
[2019-05-01 06:53] LABS: EOS % 0.5 % (1.0-4.0); HEMATOCRIT 27.8 % (42.0-52.0); HEMOGLOBIN 8.2 g/dl (14.0-18.0); LYMPH # 0.8 10*3/uL (1.3-4.4); LYMPH % 13.5 % (27.0-41.0); MEAN CELL VOLUME 97.2 fl (80.0-94.0); MEAN CORPUSCULAR HGB 28.7 pg (27.0-31.0); MEAN CORPUSCULAR HGB CONC 29.5 g/dl (33.0-37.0); MEAN PLATELET VOLUME 9.8 fl (9.6-12.3); MONO # 0.8 10*3/uL (0.1-1.0); MONO % 13.7 % (3.0-9.0); NEUT # 4.1 10*3/uL (2.3-7.9); NEUT % 71.8 % (47.0-73.0); PLATELET COUNT AUTOMATED 183 10*3/uL (130-400); RED BLOOD COUNT 2.86 10*6/uL (4.50-5.90); RED CELL DISTRI WIDTH 15.1 % (0-14.5); WHITE BLOOD COUNT 5.6 10*3/uL (4.8-10.8)
--- NOTE | 2019-05-01 07:00 | NUR ---
PT. PLEASANT AND COOPERATIVE FOR SHIFT. NO COMBATIVE PERIODS FOR 12 HRS.
[2019-05-01 07:20] LABS: POTASSIUM 4.3 mmol/L (3.5-5.1)
[2019-05-01 07:21] LABS: CREATININE 4.2 mg/dL (0.70-1.30)
--- NOTE | 2019-05-01 07:45 | NUR ---
OT NOTE Pt was seen this A.M. 1:1 for 25 minute OT session. Upon arrival pt was supine in bed. Pt identified by name and and had no complaints at this time. Upon therapist arrival pt was found with his O2 off and 2L running with pt reporting "yeah, I took it off for a little." SpO2 checked and was found at 78%, placed 2L-O2 back onto pt. After aprox 2-3 minutes pt's SpO2 raised to 94%. Educated pt on importance of O2 use and notified nurse Macias of finding. Pt also presented to therapy with increased confusion and poor/slow command follow. Pt transferred supine to sit EOB with Ese and use of bed rail for UE support. While sitting EOB challenged pt's dynamic sitting balance while weight shifting, crossing midline, and reachng over all planes. Pt was able to maintain F+ sitting balance throughout. Pt completed sit to stand from bed level with Ese and use of w/w for UE support. Functional mobility then completed into the bathroom with CGA and use of w/w with verbal prompts for walker safety and slowing down due to being impulsive, pt had poor carry over throughout. Pt transferred on to standard commode with Ese and off with modA due to low surface. Functional mobility then completed back to the recliner with CGA and use of w/w. There he was left sitting upright with call light in hand, tray table in place, and body alarm activated for safety. Continue with rec D/C plan to SNF. CLAUDETTE Garcia
--- NOTE | 2019-05-01 07:50 | NUR ---
PHYSICAL THERAPY Patient seen this am 1:1 for therapy visit and was just awakening supine in bed upon therapist arrival. Patient identified by name / and presented without O2 this morning as nasal canula was lying in bed next to patient. Patient SpO2 78%, HR 75 bpm prior to treatment with O2 applied at 2L via NC. Nurse notified that O2 was off and after 1 minute patient rechecked with SpO2 95%, HR 81 bpm. Patient transfers supine to sit EOB and sit to stand transfer MIN A, ambulating with use of wh walker, Min/CGA, 25'x 2, demonstrating unsteady gait pattern. Patient needed several v/c's for proper hand placement and safe walker navigaiton secondary to increased confusion. Patient returned to bedside chair with mild fatigue and remained with call light, tray table, cell phone and body alarm for safety. Will continue per POC as tolerated, total treatment time 16 minutes. Nico Mtz, [employer]
--- NOTE | 2019-05-01 07:50 | NUR ---
ALBINO was notified that the patient has been approved [facility] ALBINO is faxing updates to [facility]. -ALBINO Conn
[2019-05-01 08:00] VITALS: BP 121/61
--- NOTE | 2019-05-01 11:48 | NUR ---
PT HAS BEEN APPROVED FOR [facility] AND CAN GO WHEN MEDICALLY STABLE. WILL CONTINUE TO FOLLOW.
[2019-05-01 12:00] VITALS: BP 104/48
[2019-05-01] MEDS ORDERED: LISINOPRIL5 MG PO (14:08)
[2019-05-01] MEDS ORDERED: HYDROCODONE-AC1 EAC1 PO (14:08)
--- NOTE | 2019-05-01 14:45 | NUR ---
PUMPER HEAD received notice of patient discharge. PUMPER HEAD spoke with the RN. PUMPER HEAD contacted [place] to transport the patient to [facility]. They are available for tranport at 4pm today. PUMPER HEAD contacted Patients daughter Nguyen and made her aware of the transport time. PUMPER HEAD contactd [facility]. Will fax demographics to [place]. -ALBINO Conn
[2019-05-01] MEDS ORDERED: ALPRAZOLAM0.5 M3 PO (15:45)
[2019-05-01 16:00] VITALS: BP 104/71
--- NOTE | 2019-05-01 16:31 | NUR ---
REPORT CALLED TO [facility]
--- NOTE | 2019-05-01 18:34 | NUR ---
Discharge instructions reviewed with patient/family. Patient receptive and verbalizes understanding. Follow-up care arranged. Written instructions given to patient/family. JULIO RENDON
--- NOTE | 2019-05-02 07:41 | NUR ---
OT CO-SIGN I APPROVE OF THE NOTES WRITTEN ABOVE. THANK YOU. TEETEE EVANS, OTR/L
--- NOTE | 2019-05-02 07:47 | NUR ---
PHYSICAL THERAPY CO-SIGN I approve of the Physical Therapy notes written above. CHAPIN KRISHNAMURTHY PT,DPT
== END 2019-05-01 18:34 | disposition other institution (70) | DRG 70 ==
LOC: ED 09:45 → EDHOLD 11:50 → 5E 11:50
PROVIDERS: Emergency Medicine; Family Medicine; Internal Medicine; Student in an Organized Health Care Education/Training Program; ADMIT Family Medicine
PROC: 0HQ1XZZ Repair Face Skin, External Approach (ICD-10-PCS; principal; 2019-04-29)
DX: G93.41 Metabolic encephalopathy (principal); N18.6 End stage renal disease; E87.1 Hypo-osmolality and hyponatremia; J81.1 Chronic pulmonary edema; I13.2 Hypertensive heart and chronic kidney disease with heart failure and with stage 5 chronic kidney disease, or end stage renal disease; N17.8 Other acute kidney failure; I50.32 Chronic diastolic (congestive) heart failure; S01.81XA Laceration without foreign body of other part of head, initial encounter; I48.91 Unspecified atrial fibrillation; L98.8 Other specified disorders of the skin and subcutaneous tissue; E11.22 Type 2 diabetes mellitus with diabetic chronic kidney disease; M10.9 Gout, unspecified; F10.10 Alcohol abuse, uncomplicated; Z96.653 Presence of artificial knee joint, bilateral; D64.9 Anemia, unspecified; E83.41 Hypermagnesemia; E80.6 Other disorders of bilirubin metabolism; R26.2 Difficulty in walking, not elsewhere classified; E66.3 Overweight; I95.9 Hypotension, unspecified; W18.39XA Other fall on same level, initial encounter; Y92.238 Other place in hospital as the place of occurrence of the external cause; Y99.8 Other external cause status; Z90.49 Acquired absence of other specified parts of digestive tract; Z82.49 Family history of ischemic heart disease and other diseases of the circulatory system; Z79.899 Other long term (current) drug therapy; Z99.2 Dependence on renal dialysis; Z99.81 Dependence on supplemental oxygen; Z83.3 Family history of diabetes mellitus; Y93.89 Activity, other specified; Z68.29 Body mass index [BMI] 29.0-29.9, adult

== ENCOUNTER 2019-05-11 15:10 | Inpatient (IN) | payer MEDICARE ==
[~2019-05-11] VITALS: Ht 185 cm; Wt 91.7 kg
[~2019-05-11 15:10] MED LIST changes: +AMLODIPINE BESY10 MG PO; +LISINOPRIL5 MG PO
[2019-05-11 15:34] VITALS: BP 111/52
--- NOTE | 2019-05-11 15:50 | NUR ---
VERBAL ORDER TO [facility]ACE [facility] URINARY CATHETER FOR ACCURATE INTAKE AND OUTPUT READINGS AND URINE SPECIMEN.
[2019-05-11 16:03] LABS: HEMATOCRIT 26.7 % (42.0-52.0); HEMOGLOBIN 7.9 g/dl (14.0-18.0); MEAN CORPUSCULAR HGB 28.1 pg (27.0-31.0); MEAN CORPUSCULAR HGB CONC 29.6 g/dl (33.0-37.0); MEAN PLATELET VOLUME 9.5 fl (9.6-12.3); PLATELET COUNT AUTOMATED 226 10*3/uL (130-400); RED BLOOD COUNT 2.81 10*6/uL (4.50-5.90); WHITE BLOOD COUNT 11.8 10*3/uL (4.8-10.8)
[2019-05-11 16:15] LABS: ACT PARTIAL THROMBO TIME 28.8 SECONDS (20.0-32.1)
[2019-05-11 16:16] LABS: BURR CELLS FEW; PLATELET SUFFICIENCY NORMAL (NORMAL); TOTAL CELLS COUNTED 100 #CELLS
[2019-05-11 16:17] LABS: ALBUMIN 2.4 gm/dl (3.1-4.5); CREATININE 5.21 mg/dL (0.70-1.30); POTASSIUM 4.5 mmol/L (3.5-5.1); TOTAL PROTEIN 6.9 gm/dL (6.4-8.2)
[2019-05-11 16:25] LABS: TROPONIN I 0.116 ng/ml (<0.045)
[2019-05-11 16:58] VITALS: BP 115/49
[2019-05-11 17:04] VITALS: BP 124/57
--- NOTE | 2019-05-11 17:04 | NUR ---
A 78, admitted to , under the services of GEORGINA Pérez DO with a diagnosis of CHF, CKD. Chief complaint is SOB, PITTING EDEMA TO LEGS. Patient arrived via ambulance from ER. Monitor applied. Initial assessment completed. Vital signs taken and recorded. GEORGINA PÉREZ DO notified of admission to the unit. Orders received. See assessment for past medical history, medications and allergies. Patient and/or family oriented to unit. [facility] visitation policy reviewed. Clothing/patient valuable form completed. BRYANT PEDRAZA
--- NOTE | 2019-05-11 18:08 | NUR ---
NOTIFIED CONTRERAS NGUYEN AT [facility] OF ADMISSION.
--- NOTE | 2019-05-11 18:12 | NUR ---
CONSULT CALLED TO . AWAITING CALL BACK.
--- NOTE | 2019-05-11 18:16 | NUR ---
CALLED BACK. ORDERED TO GIVE 120 LASIX Q12H, LEAVE EVANS CATH IN, RESTRICT FLUIDS TO 1L. DIALYSIS MWF.
--- NOTE | 2019-05-11 18:23 | NUR ---
[facility] NOTIFIED OF DIALYSIS ORDER BY . SAID THEY WOULD BE HERE TOMORROW FOR THE PTs TREATMENT.
--- NOTE | 2019-05-11 19:28 | NUR ---
Notified of troponin 0.103. No new orders rec'd.
--- NOTE | 2019-05-11 19:49 | NUR ---
RESTING IN BED. NO COIVED COMPLAINTS. IV LASIX GIVEN OVER 10MINS ORDERED BY . CALL LIGHT IN REACH. BED ALARM ON. WILL MONITOR.
[2019-05-11 20:00] VITALS: BP 102/47
--- NOTE | 2019-05-11 23:38 | NUR ---
PATIENT RESTING WITH NO S/S OF DISTRESS. BED IN LOWEST POSITION, CALL LIGHT IN REACH
[2019-05-12] VITALS: BP 107/55
--- NOTE | 2019-05-12 01:23 | NUR ---
PATIENT PULLED OUT IV EARLIER IN SHIFT. IV started right antecubital with #22 angiocath after 1 attempts. The IV site was prepped with Chloraprep. Heparin lock attached. Sterile dressing applied. Patient tolerated precedure well. Procedure performed according to [facility] policy & procedure. VICKY LANGE
[2019-05-12 01:41] LABS: BILIRUBIN NEGATIVE (NEGATIVE); BLOOD 3+ (NEGATIVE); CLARITY TURBID (CLEAR); COLOR YELLOW (YELLOW); GLUCOSE NEGATIVE (NEGATIVE); KETONE TRACE (NEGATIVE); LEUKO ESTERASE 3+ (NEGATIVE); NITRITE NEGATIVE (NEGATIVE); SPECIFIC GRAVITY 1.025 (1.005-1.030)
[2019-05-12 01:51] LABS: WBC TNTC wbc/hpf (0-5)
--- NOTE | 2019-05-12 03:10 | NUR ---
PATIENT RESTING IN BED WITH NO S/S OF DISTRESS. BED IN LOWEST POSITION, CALL LIGHT IN REACH
--- NOTE | 2019-05-12 05:32 | NUR ---
PATIENT REFUSING TO LET THIS RN CHANGE HIS GOWN. BLOOD STAIN NOTED ON GOWN.
--- NOTE | 2019-05-12 05:36 | NUR ---
PATIENT PULLED SECOND IV OUT THIS SHIFT. CATHETER IN PLACE. SCANT, DRY BLOOD NOTED
[2019-05-12 06:19] LABS: HEMATOCRIT 26.7 % (42.0-52.0); MEAN CORPUSCULAR HGB 28.2 pg (27.0-31.0); MEAN PLATELET VOLUME 9.6 fl (9.6-12.3); PLATELET COUNT AUTOMATED 217 10*3/uL (130-400); RED BLOOD COUNT 2.84 10*6/uL (4.50-5.90); RED CELL DISTRI WIDTH 16.8 % (0-14.5); WHITE BLOOD COUNT 12.6 10*3/uL (4.8-10.8)
[2019-05-12 06:43] LABS: ALBUMIN 2.4 gm/dl (3.1-4.5); CREATININE 5.55 mg/dL (0.70-1.30); PHOSPHOROUS 6.2 mg/dL (2.5-4.9); POTASSIUM 4.4 mmol/L (3.5-5.1); TOTAL PROTEIN 6.8 gm/dL (6.4-8.2)
[2019-05-12 07:16] LABS: PLATELET SUFFICIENCY NORMAL (NORMAL); POLYCHROMASIA SLIGHT; SCHISTOCYTES FEW; TOTAL CELLS COUNTED 100 #CELLS
[2019-05-12] MEDS ORDERED: DEPAKOTE250 MG PO (07:43)
--- NOTE | 2019-05-12 07:58 | NUR ---
WALDO FARMER [id number] Please refer to the physician's history and physical for past medical history, comorbid conditions, and allergies. Diagnosis: CHF CKD Clarence Score: 16,AT RISK WOUND DESCRIPTIONS: Wound Number 1: Above right eyebrow 2 sutures are intact and were place on 04/29/19. No drainage noted incision is well approximated. Surface the patient is resting on: Position Pro SKIN PREVENTION RECOMMENDATION: 1. Pressure redistribution support surface as appropriate 2. Elevate heels 3. Remove boots/TEDS every shift and reapply 4. Head of bed 30 degrees as tolerated 5. Assess nutrition and hydration 6. Manage moisture 7. Avoid the use of containment devices while in bed 8. Use absorptive products on surfaces limit layers of linens on bed 9. Turn and reposition every 1-2 hours in bed and every 1 hour in chair as tolerated 10. Weight shifts every 15 minutes while up in chair 11. Offloading with pillows or device to keep heels elevated off bed 12. Monitor skin at least every shift 13. Inspect under medical devices twice a day WOUND TREATMENT RECOMMENDATIONS: Remove 2 sutures and apply steristripts and maintain until they fall off.
--- NOTE | 2019-05-12 08:26 | NUR ---
PT IN DIALYSIS
--- NOTE | 2019-05-12 08:46 | NUR ---
Nursing screen received and chart review completed. Patient may benefit from Occupational Therapy evaluation for d/c planning as he was admitted from SNF. Thank you. Sushila Carias OTR/l
--- NOTE | 2019-05-12 08:51 | NUR ---
Dr. Craig notified of wound care recommendations.
--- NOTE | 2019-05-12 09:00 | NUR ---
case management attempts to visit with patient, he was out of the room in dialysis which he has Sunday, Sunday and Sunday, patient was admitted to the hospital from [facility] where he is skilled care for rehab, production planner scheduler/case management will contact patient's family regarding discharge plans and returning to [place] when medically stable, case management will follow
--- NOTE | 2019-05-12 10:57 | NUR ---
PT REMAINS IN DIALYSIS
--- NOTE | 2019-05-12 12:58 | NUR ---
pt return from dialysis. dr. coombs in to see patient. made dr. coombs aware that home medications need ordered, asked about sutures in forhead removal.
[2019-05-12 13:06] VITALS: BP 100/48
--- NOTE | 2019-05-12 13:18 | NUR ---
DR. SHANKAR AWARE OF LOW BLOOD PRESSURE, NO NEW ORDERS AT THIS TIME
[2019-05-12 13:24] VITALS: BP 110/38
[2019-05-12 16:00] VITALS: BP 110/47
--- NOTE | 2019-05-12 16:38 | NUR ---
2 sutures removed from right eyebrow/forehead area, hydrogel applied per order. pt refused steri strips at this time
--- NOTE | 2019-05-12 17:45 | NUR ---
PATIENTS DAUGHTER ADDI HERE TO VISIT PATIENT, UPDATED ON PLAN OF CARE/PATIENT STATUS
--- NOTE | 2019-05-12 19:24 | NUR ---
PATIENT RESTING IN BED WITH BED ALARM ON. ARROUSES EASILY. REORIENTED TO TIME AND PLACE. NO NEEDS AT THIS TIME. BED IN LOWEST POSITION, CALL LIGHT IN REACH
[2019-05-12 20:00] VITALS: BP 128/49
--- NOTE | 2019-05-12 20:29 | NUR ---
PATIENT EXTREMELY AGGITATED. CLIMBING OUT OF BED. CUSSING AT THIS RN AND RN HOPE. STATES HE WILL NOT GET BACK IN BED AND NEEDS TO GO "TO THE KITCHEN". REORIENTED TO PLACE AND TIME. PATIENT STATES "DO NOT F*CK WITH ME". PATIENT ASSISTED TO JOANNE-CHAIR WITH 3 ASSIST. SNACK GIVEN AND TV TURNED ON PER REQUEST. PRN XANAX GIVEN PER ORDER FOR AGITATION. BODY ALARM IN PLACE. JOANNE CHAIR LOCKED. WILL MONITOR
--- NOTE | 2019-05-12 22:41 | NUR ---
PATIENT SITTING IN JOANNE CHAIR AT BEDSIDE. WATCHING TV. CONTINUES TO BE AGITATED. DENIES NEEDS AT THIS TIME. BODY ALARM INTACT, CHAIR LOCKED, CALL LIGHT WITHIN REACH
[2019-05-13] VITALS: BP 110/47
--- NOTE | 2019-05-13 00:42 | NUR ---
PATIENT REFUSING TO WEAR OXYGEN AT THIS TIME.
--- NOTE | 2019-05-13 03:11 | NUR ---
PATIENT SITTING IN CHAIR AT BEDSIDE. O2 NASAL CANNULA REAPPLIED. DENIES NEEDS. BED IN LOWEST POSITION, CALL LIGHT IN REACH, BODY ALARM ON
--- NOTE | 2019-05-13 05:59 | NUR ---
Upon discharge recommend patient to follow up for wound care in outpatient setting continue current wound care orders at discharging facility.
[2019-05-13 07:11] LABS: BASO % 0.1 % (0.0-1.0); EOS % 0.1 % (1.0-4.0); HEMATOCRIT 28.7 % (42.0-52.0); HEMOGLOBIN 8.5 g/dl (14.0-18.0); LYMPH # 0.8 10*3/uL (1.3-4.4); LYMPH % 7.5 % (27.0-41.0); MEAN CELL VOLUME 92.6 fl (80.0-94.0); MEAN CORPUSCULAR HGB 27.4 pg (27.0-31.0); MEAN CORPUSCULAR HGB CONC 29.6 g/dl (33.0-37.0); MEAN PLATELET VOLUME 9.6 fl (9.6-12.3); MONO # 1.3 10*3/uL (0.1-1.0); MONO % 11.8 % (3.0-9.0); NEUT # 8.4 10*3/uL (2.3-7.9); NEUT % 79.3 % (47.0-73.0); NUCLEATED RED BLOOD CELL 0.2 % (0.0-0.0); PLATELET COUNT AUTOMATED 207 10*3/uL (130-400); RED CELL DISTRI WIDTH 16.9 % (0-14.5); WHITE BLOOD COUNT 10.6 10*3/uL (4.8-10.8)
[2019-05-13 07:14] LABS: CREATININE 3.63 mg/dL (0.70-1.30); POTASSIUM 3.9 mmol/L (3.5-5.1)
--- NOTE | 2019-05-13 07:16 | NUR ---
Patient comes from [facility] short term. He is ok to return when medically stable for discharge.
[2019-05-13 08:00] VITALS: BP 118/58
--- NOTE | 2019-05-13 10:59 | NUR ---
OFF FLOOR TO DIALYSIS.
--- NOTE | 2019-05-13 11:39 | NUR ---
Irrigation Engineer Sirena lynne stated patients daughter called and asked patient referral to be faxed to [facility]. Contacted facility to enquire about any open beds. waiting on return call.
--- NOTE | 2019-05-13 11:51 | NUR ---
Contacted daughter Myra. Told her there are not available beds in [facility], and exeplained they are always full due to very few beds in [place]. She stated "he is not returning to [facility]!". I told her she said the same thing about [facility] so that leaves her with [facility]. "Well, thats not happening either." "I have to think about this and discuss with family, I will call back tomorrow".
[2019-05-13 16:00] VITALS: BP 121/49
[2019-05-13 20:00] VITALS: BP 117/52
--- NOTE | 2019-05-13 23:20 | NUR ---
24 HR chart check completed.
--- NOTE | 2019-05-14 00:03 | NUR ---
PATIENT RESTING WITH EYES CLOSED. RESPIRATIONS EASY AND UNLBAORED ON 3LNC. BED ALARM ON AND CALL LIGHT WITHIN REACH. WILL MONITOR.
--- NOTE | 2019-05-14 05:23 | NUR ---
PATIENT AWAKE, ALER TO SELF ONLY. PATIENT HAS NO COMPLAINTS AT THIS TIME. RESPIRATIONS EASY AND UNLABORED. BED ALARM ON AND CALL LIGHT WITHIN REACH. WILL MONITOR.
[2019-05-14 08:00] VITALS: BP 112/60
[2019-05-14 08:25] LABS: POTASSIUM 3.5 mmol/L (3.5-5.1)
[2019-05-14 08:35] LABS: CREATININE 3.08 mg/dL (0.70-1.30); PHOSPHOROUS 3.8 mg/dL (2.5-4.9); THYROID STIM HORMONE (HS) 1.37 uIU/ml (0.358-4.75)
--- NOTE | 2019-05-14 09:24 | NUR ---
Contacted daughter Myra to discuss discharge plans. She stated patient will return to the [facility] and she will work with them to see about transfer to their [place] facility. Faxed updated clinicals to [facility].
--- NOTE | 2019-05-14 10:38 | NUR ---
PHYSICAL THERAPY Attempted physical therapy evaluation. Pt initially agreeable to participating in therapy but then refused. Will attempt at a later date. Thank you Fernanda Vazquez, PT, DPT
--- NOTE | 2019-05-14 10:38 | NUR ---
Occupational therapy orders receieved. Upon OT arrival, patient stated "You don't want to do an evaluation on me. You would be disappointed." Patient asked if he would like to participate in an OT/PT evaluation and accepted. Following discussion of PLOF, patient was confused and agitated. Patient not appropriate at this time to continue with OT evaluation. Will follow up with patient when appropriate. Lilia Thorpe, OTR/L
[2019-05-14 12:00] VITALS: BP 94/47
--- NOTE | 2019-05-14 13:57 | NUR ---
Patient is ok to return to the [facility] when medically stable for discharge.
--- NOTE | 2019-05-14 14:04 | NUR ---
Occupational therapy orders received and chart reviewed. Patient unavailable at this time, per nursing, he is at dialysis. Will follow up with patient when available and appropriate. Thank you. Lilia Thorpe OTR/L
--- NOTE | 2019-05-14 14:04 | NUR ---
PHYSICAL THERAPY Attempted physical therapy evaluation however Pt in dialysis. Will attempt at a later time. thank you Fernanda Vazquez, PT, DPT
[2019-05-14 20:00] VITALS: BP 130/58
--- NOTE | 2019-05-14 20:04 | NUR ---
PATIENT IS AWAKE AND ORIENTED TO PERSON/PLACE, RESTING IN BED WITH EASY AND REGULAR RESPERS ON 3L O2 VIA NC. ASSESSMENT IS COMPLETE WITH NO C/O OR S/S OF DISTRESS NOTED AT THIS TIME. BED IS LOW, LOCKED, ALARMED, AND CALL LIGHT IS WITHIN REACH. WILL CONTINUE TO MONITOR SEE SHIFT ASSESSMENT.
--- NOTE | 2019-05-14 23:29 | NUR ---
24 HR chart check completed.
[2019-05-15] VITALS: BP 119/52
[2019-05-15 07:02] LABS: BASO % 0.1 % (0.0-1.0); EOS % 0.2 % (1.0-4.0); HEMATOCRIT 29.2 % (42.0-52.0); HEMOGLOBIN 8.7 g/dl (14.0-18.0); LYMPH # 1.1 10*3/uL (1.3-4.4); LYMPH % 11.5 % (27.0-41.0); MEAN CELL VOLUME 93.6 fl (80.0-94.0); MEAN CORPUSCULAR HGB 27.9 pg (27.0-31.0); MEAN CORPUSCULAR HGB CONC 29.8 g/dl (33.0-37.0); MEAN PLATELET VOLUME 9.6 fl (9.6-12.3); MONO # 1.2 10*3/uL (0.1-1.0); MONO % 13.1 % (3.0-9.0); NEUT # 6.9 10*3/uL (2.3-7.9); NEUT % 73.5 % (47.0-73.0); PLATELET COUNT AUTOMATED 169 10*3/uL (130-400); RED BLOOD COUNT 3.12 10*6/uL (4.50-5.90); RED CELL DISTRI WIDTH 16.9 % (0-14.5); WHITE BLOOD COUNT 9.4 10*3/uL (4.8-10.8)
[2019-05-15 07:10] LABS: CREATININE 2.47 mg/dL (0.70-1.30); POTASSIUM 3.9 mmol/L (3.5-5.1)
[2019-05-15 08:00] VITALS: BP 110/56; BP 92/50
--- NOTE | 2019-05-15 09:00 | NUR ---
case management visits with patient, patient is confused, he will return to [facility] to finish his rehab, case management will follow
--- NOTE | 2019-05-15 10:35 | NUR ---
patient discharged to return to the [facility]. Transportation scheduled for 2 PM with [facility]. Faxed DC orders. Nursing/computer forwarding system markup clerk, [place] notified. Attempted to contact daughter Myra. Cell phone stating voicemail box is full and undable to leave a message. Called home phone, left message.
--- NOTE | 2019-05-15 10:41 | NUR ---
Another Multi-Disciplinary Team meeting was held on 05/15/19, for the purpose of discharge planning. The patient was referred to the following services for follow-up: patient will be discharged to [facility] today DAPHNE ROD
--- NOTE | 2019-05-15 11:38 | NUR ---
NOTIFIED OF LOW BP, PT ASYMPTOMATIC
[2019-05-15 12:00] VITALS: BP 76/30
--- NOTE | 2019-05-15 12:30 | NUR ---
NURSE TO NURSE CALLED INTO [facility]
--- NOTE | 2019-05-15 17:12 | NUR ---
Discharge instructions reviewed with patient/family. Patient receptive and verbalizes understanding. Follow-up care arranged. Written instructions given to patient/family. LYLE RODRIGUEZ
== END 2019-05-15 17:12 | disposition other institution (70) | DRG 70 ==
LOC: ED 15:10 → EDHOLD 16:36 → 4E 16:36
PROVIDERS: Emergency Medicine; Internal Medicine; Student in an Organized Health Care Education/Training Program; ADMIT Emergency Medicine
PROC: 5A1D70Z Performance of Urinary Filtration, Intermittent, Less than 6 Hours Per Day (ICD-10-PCS; principal; 2019-05-12)
PROC: 5A1D70Z Performance of Urinary Filtration, Intermittent, Less than 6 Hours Per Day (ICD-10-PCS; 2019-05-13)
PROC: 5A1D70Z Performance of Urinary Filtration, Intermittent, Less than 6 Hours Per Day (ICD-10-PCS; 2019-05-14)
DX: G93.41 Metabolic encephalopathy (principal); I50.31 Acute diastolic (congestive) heart failure; N18.6 End stage renal disease; E43 Unspecified severe protein-calorie malnutrition; I13.2 Hypertensive heart and chronic kidney disease with heart failure and with stage 5 chronic kidney disease, or end stage renal disease; E87.1 Hypo-osmolality and hyponatremia; J96.11 Chronic respiratory failure with hypoxia; I48.91 Unspecified atrial fibrillation; D72.821 Monocytosis (symptomatic); E83.39 Other disorders of phosphorus metabolism; D64.9 Anemia, unspecified; D72.810 Lymphocytopenia; R79.89 Other specified abnormal findings of blood chemistry; M10.9 Gout, unspecified; F41.9 Anxiety disorder, unspecified; Z96.653 Presence of artificial knee joint, bilateral; E53.8 Deficiency of other specified B group vitamins; E13.22 Other specified diabetes mellitus with diabetic chronic kidney disease; E66.3 Overweight; G89.29 Other chronic pain; M25.569 Pain in unspecified knee; Z99.81 Dependence on supplemental oxygen; Z99.2 Dependence on renal dialysis; Z91.041 Radiographic dye allergy status; Z90.49 Acquired absence of other specified parts of digestive tract; Z82.49 Family history of ischemic heart disease and other diseases of the circulatory system; Z83.3 Family history of diabetes mellitus; Z79.899 Other long term (current) drug therapy; Z68.30 Body mass index [BMI] 30.0-30.9, adult

== ENCOUNTER 2019-06-30 15:11 | Inpatient (IN) | payer OTHER, MEDICARE ==
[~2019-06-30] VITALS: Ht 185.4 cm; Wt 91.5 kg
[2019-06-30 15:11] VITALS: BP 95/47
[~2019-06-30 15:11] MED LIST changes: +DEPAKOTE250 MG PO
--- NOTE | 2019-06-30 15:15 | NUR ---
RIGHT GREAT TOE NAIL LIFTED OFF OF NAIL BED AND ATTACHED AT SMALL AREA OF POSTERIOR CUTICLE. SMALL AMOUNT OF BLEEDING NOTED. RIGHT GREAT TOE IS NECROTIC TO MEDIAL ASPECT AND FOUL SMELLING. RIGHT SECOND TOE IS NECROTIC WITH FOUL ODOR WELL.
--- NOTE | 2019-06-30 16:00 | NUR ---
MEDICATION LIST VERIFIED BY PATIENT'S DAUGHTER PER HIS REQUEST.
--- NOTE | 2019-06-30 16:04 | NUR ---
TAKEN FOR IMAGING.
--- NOTE | 2019-06-30 16:04 | NUR ---
ADDI (DAUGHTER) CAN BE REACHED AT [phone] (HOME) OR [phone] (CELL). CELL DOES NOT GET HEALTH AND SAFETY INSTRUCTOR AT HOME SO CALL HOME PHONE FIRST PLEASE.
--- NOTE | 2019-06-30 16:08 | NUR ---
MISSED DIALYSIS TODAY DUE TO APPT AT [place]. IS SCHEDULED FOR DIALYSIS OP TOMORROW, , AND SUNDAY. DAUGHTER IS CONCERNED ABOUT RECEIVING DIALYSIS WHILE ADMITTED AND WAS ASSURED IT WILL BE ADDRESSED.
--- NOTE | 2019-06-30 16:17 | NUR ---
ELEVATOR TENDER IN TO OBTAIN SECOND SET OF BLOOD CULTURES.
[2019-06-30 16:31] LABS: BASO % 0.3 % (0.0-1.0); EOS # 0.1 10*3/uL (0.0-0.4); EOS % 0.8 % (1.0-4.0); HEMOGLOBIN 10.1 g/dl (14.0-18.0); LYMPH # 1.3 10*3/uL (1.3-4.4); LYMPH % 12.6 % (27.0-41.0); MEAN CELL VOLUME 97.9 fl (80.0-94.0); MEAN CORPUSCULAR HGB CONC 30.6 g/dl (33.0-37.0); MEAN PLATELET VOLUME 9.7 fl (9.6-12.3); MONO # 1.1 10*3/uL (0.1-1.0); MONO % 11.4 % (3.0-9.0); NEUT # 7.4 10*3/uL (2.3-7.9); NEUT % 74.2 % (47.0-73.0); PLATELET COUNT AUTOMATED 251 10*3/uL (130-400); RED BLOOD COUNT 3.37 10*6/uL (4.50-5.90); RED CELL DISTRI WIDTH 17.2 % (0-14.5); WHITE BLOOD COUNT 9.9 10*3/uL (4.8-10.8)
[2019-06-30 16:34] VITALS: BP 96/57
--- NOTE | 2019-06-30 16:42 | NUR ---
RIGHT FOOT WRAPPED WITH NONADHERENT AND KERLEX OVERLAY AND TAPED IN PLACE. TOLERATED WELL. UPDATED AND AWARE OF PLAN FOR ADMISSION. NURSING BOAT HOP MADE AWARE OF REQUEST FOR PRIVATE ROOM. DAUGHTER LEFT FOR THE NIGHT AND TOOK DIRTY CLOTHES AND SHOES WITH HER. LEFT BAG OF CLEAN BELONGINGS AND COAT. SIDE RAIL X 1 AND CALL LIGHT IN REACH. RESTING COMFORTABLY.
[2019-06-30 16:47] LABS: ALBUMIN 2.4 gm/dl (3.1-4.5); CREATININE 5.55 mg/dL (0.70-1.30); POTASSIUM 3.4 mmol/L (3.5-5.1); TOTAL PROTEIN 7.7 gm/dL (6.4-8.2)
--- NOTE | 2019-06-30 16:51 | NUR ---
LACTIC OF 2.8 REPORTED TO DIOGENES.
[2019-06-30 16:58] VITALS: BP 105/53
--- NOTE | 2019-06-30 17:25 | NUR ---
ASSISTED TO BATHROOM TO ATTEMPT URINE SPECIMEN. HAD BM, BUT UNABLE TO URINATE AT THIS TIME. ASSISTED BACK TO BED. TOLERATED WELL.
[2019-06-30 17:28] VITALS: BP 107/52
--- NOTE | 2019-06-30 17:43 | NUR ---
ATTEMPTED TO REACH ALLISON, RECEIVING RN. WILL RE-ATTEMPT.
[2019-06-30 17:50] VITALS: BP 106/56
--- NOTE | 2019-06-30 17:50 | NUR ---
Time: 1749 A 78 year old MALE admitted to [facility]E under services of EMILY SCHOFIELD DO. Pt. arrived via wheel chair from ER. Chief complaint: WOUND CHECK. ALLISON PEREZ
--- NOTE | 2019-06-30 18:10 | NUR ---
NOTIFIED RESIDENT [facility] POLISHER FOR PODIATRY. NO NEW ORDERS RECEIVED. STATED SHE WOULD SEE PATIENT FIRST THING IN THE MORNING.
--- NOTE | 2019-06-30 18:38 | NUR ---
DR. HERNANDEZ ANSWERING SERVICE MADE AWARE OF NEW CONSULT.
--- NOTE | 2019-06-30 18:55 | NUR ---
DR. HERNANDEZ CALLED BACK. DR. HERNANDEZ WANTS PATIENT TO HAVE DIALYSIS IN THE AM DUE TO HIM MISSING HIS DIALYSIS TODAY. WILL CONTINUE TO MONITOR
--- NOTE | 2019-06-30 18:58 | NUR ---
PODIATRY RESIDENT TO COME IN AND SEE PATIENT. WILL PUT WOUND CARE ORDERS IN THEN.
--- NOTE | 2019-06-30 19:22 | NUR ---
DR. QUINTERO CALLED BACK. STATED THEY WOULD JUST SEE THE PATIENT IN THE MORNING INSTEAD OF COMING IN TONIGHT. TO JUST WRAP HIS FOOT WITH DRY STERILE DRESSING.
[2019-06-30 20:00] VITALS: BP 122/57
[2019-07-01] VITALS: BP 119/66; BP 134/69
--- NOTE | 2019-07-01 07:03 | NUR ---
WALDO FARMER [id number] Please refer to the physician's history and physical for past medical history, comorbid conditions, and allergies. Diagnosis: TOE NECROSIS,GANGRENE,LACTIC ACIDOSIS Clarence Score: 18,LOW OR NO RISK WOUND DESCRIPTIONS: Wound Number: 1 Location of the wound: right great toe Type of wound: unstageable Thickness: Full Size: 2.5cm x 5.5cm x 0.1cm Tunneling: none Undermining: none Sinus Tract: none Presence of Exudate: Serosanguineous Amount: Light Color: Black, yellow, red Odor: Foul Periwound Skin Appearance: Erythema Wound edges: approximated Pain (associated with wound): none at time of assessment How does patient state this happened? pt stated this started one week Wound Number: 2 Location of the wound: right 2nd toe Type of wound: unstageable Thickness: Full Size: 3.0cm x 1.5cm x 0.1cm Tunneling: none Undermining: none Sinus Tract: none Presence of Exudate: Serosanguineous Amount: Light Color: Black, yellow, red Odor: Foul Periwound Skin Appearance: Erythema Wound edges: approximated Pain (associated with wound): none at time of assessment How does patient state this happened? pt stated this started one week Wound Number: 3 Location of the wound: plantar aspect of foot Type of wound: unstageable Thickness: Full Size: 1.7cm x 0.9cm x <0.1cm Tunneling: none Undermining: none Sinus Tract: none Presence of Exudate: none Amount: None Color: Black, yellow, red Odor: None Periwound Skin Appearance: Erythema Wound edges: approximated Pain (associated with wound): none at time of assessment How does patient state this happened? pt stated this started one week Surface the patient is resting on: Position Pro SKIN PREVENTION RECOMMENDATION: 1. Pressure redistribution support surface as appropriate 2. Elevate heels 3. Remove boots/TEDS every shift and reapply 4. Head of bed 30 degrees as tolerated 5. Assess nutrition and hydration 6. Manage moisture 7. Avoid the use of containment devices while in bed 8. Use absorptive products on surfaces limit layers of linens on bed 9. Turn and reposition every 1-2 hours in bed and every 1 hour in chair as tolerated 10. Weight shifts every 15 minutes while up in chair 11. Offloading with pillows or device to keep heels elevated off bed 12. Monitor skin at least every shift 13. Inspect under medical devices twice a day WOUND TREATMENT RECOMMENDATIONS: Order is to apply dsd and podiatry is already. Venous and arterial studies ordered. X-ray states with persistent indications follow-ups including MRI suggested from 06/30/19 right foot x-ray.
[2019-07-01 07:12] LABS: BASO % 0.2 % (0.0-1.0); EOS # 0.2 10*3/uL (0.0-0.4); EOS % 2.6 % (1.0-4.0); HEMATOCRIT 27.4 % (42.0-52.0); HEMOGLOBIN 8.5 g/dl (14.0-18.0); LYMPH # 1.3 10*3/uL (1.3-4.4); LYMPH % 15.9 % (27.0-41.0); MEAN CELL VOLUME 97.5 fl (80.0-94.0); MEAN CORPUSCULAR HGB 30.2 pg (27.0-31.0); MEAN PLATELET VOLUME 9.7 fl (9.6-12.3); MONO # 0.9 10*3/uL (0.1-1.0); MONO % 10.8 % (3.0-9.0); NEUT # 5.7 10*3/uL (2.3-7.9); NEUT % 69.8 % (47.0-73.0); PLATELET COUNT AUTOMATED 236 10*3/uL (130-400); RED BLOOD COUNT 2.81 10*6/uL (4.50-5.90); RED CELL DISTRI WIDTH 17.2 % (0-14.5); WHITE BLOOD COUNT 8.2 10*3/uL (4.8-10.8)
[2019-07-01 07:28] LABS: CREATININE 5.8 mg/dL (0.70-1.30); POTASSIUM 3.9 mmol/L (3.5-5.1); TOTAL PROTEIN 6.4 gm/dL (6.4-8.2)
--- NOTE | 2019-07-01 07:37 | NUR ---
Spoke with podaitry resident Louis she stated she will see the patient when she gets to [place].
[2019-07-01 08:00] VITALS: BP 116/56
--- NOTE | 2019-07-01 08:05 | NUR ---
PATIENT TAKEN DOWN TO ULTRASOUND
--- NOTE | 2019-07-01 08:14 | NUR ---
PHYSICAL THERAPY Screen received as well as Physical Therapy orders, thank you Opal Eastman PT
--- NOTE | 2019-07-01 09:00 | NUR ---
Therapy Aide in to talk to patient. Patient states lives at home with alone. There are few steps in the home. Physician: oni eisenberg [facility]acy: [facility] Home health services: none Patient's level of ADLs: MINIMAL ASSIST Patient has working utilities: all working DME: [facility] Follow-up physician's appointment after d/c: will be made by hospitalist nurse director upon discharge Does patient want to access PORTAL?: no Discharge plan discussed with patient, he states he lives at home, he has a girlfriend that stays with him a few days a week, he recently was discharge from [facility] and stated he would not return there or any other facility, discussed with him possibly needing iv antibiotics at home and also dressing changes and he may need to return to the facility for these, patient at this time was adament that he was not returning to a facility, case management will follow. DAPHNE ROD
--- NOTE | 2019-07-01 09:03 | NUR ---
Occupational Therapy referral received and screen completed. Patient approached for OT eval but patient insisted he is independent in ADLs and mobility and did not need any theray. Discharge OT referral per patient's request. Thank you. Sushila Carias OTR/dru
--- NOTE | 2019-07-01 09:16 | NUR ---
PHYSICAL THERAPY Physical Therapy orders received chart reviewd attempted to see pt in room for evaluation. Pt declining therapy at this time in hospital stating "I get up fine and use the walker". States he does not want any therapy at this time. Will discontinue PT orders as per above discussion with patient. Opal Eastman PT
--- NOTE | 2019-07-01 09:40 | NUR ---
NOTIFIED DR. SELF OF THE RESULTS OF VENOUS ULTRASOUND. NO NEW ORDERS RECEIVED. WILL CONTINUE TO MONITOR.
[2019-07-01 12:00] VITALS: BP 109/57
--- NOTE | 2019-07-01 15:05 | NUR ---
PATIENT OFF FLOOR FOR DIALYSIS.
--- NOTE | 2019-07-01 19:46 | NUR ---
PATIENT BACK FROM DIALYSIS. DENIES ANY NEEDS OR PAIN AT THIS TIME. BED IN LOWEST POSITION, CALL LIGHT IN REACH
--- NOTE | 2019-07-01 19:51 | NUR ---
SPOKE WITH PATIENT'S DAUGHTER ADDI. SHE STATES THAT SHE WANTS HER FATHER TO HAVE A XANAX TONIGHT. ALSO STATES THAT SHE IS AN RN AND SHE WANTS IT KNOWN TO THE DOCTORS THAT A WOUND VAC WILL NOT WORK AFTER THE SURGERY TOMORROW DUE TO HER FATHER HAVING DIALYSIS THREE TIMES A WEEK AND HE IS REFUSING TO GO TO A [facility].
--- NOTE | 2019-07-01 19:55 | NUR ---
XANAX GIVEN PER PATIENT AND DAUGHTER REQUEST.
[2019-07-01 20:00] VITALS: BP 116/48
--- NOTE | 2019-07-01 20:09 | NUR ---
PATIENT SET BED ALARM OFF. WALKED TO RESTROOM WITHOUT ASSIST. REFUSING TO LET THIS RN DEGREASING WHEEL OPERATORCONTRERAS GOLDBERG HELP HIM. DAUGHTER CALLED BACK AND STATED THAT SHE WANTS HER FATHER TO HAVE MORE BLANKETS TONIGHT. MORE BLANKETS GIVEN PER REQUEST.
--- NOTE | 2019-07-01 20:49 | NUR ---
UPON HEARING IV PUMP BEEPING THIS RN WALKED IN ROOM TO TURN THE PUMP OFF. WHEN ENTERING ROOM, PATIENT WAS ON THE PHONE TELLING THE PERSON ON THE OTHER END THAT HIS IV PUMP WAS BEEPING.
--- NOTE | 2019-07-01 23:44 | NUR ---
MEDICATED WITH PRN TYLENOL FOR ELEVATED TEMP. WILL MONITOR
[2019-07-02] VITALS (9 sets, daily range): BP systolic 90–122; BP diastolic 49–86
--- NOTE | 2019-07-02 05:16 | NUR ---
PATIENT REFUSING TO DO SURGERY PAPERWORK AT THIS TIME
--- NOTE | 2019-07-02 08:26 | NUR ---
Left message for podiatry resident Sherly regarding patient's daughter request this was also passed along to Linnea RN caring for patient.
--- NOTE | 2019-07-02 08:32 | NUR ---
PATIENT TAKEN TO SURGERY AT THIS TIME.
--- NOTE | 2019-07-02 08:33 | NUR ---
NOTIFIED VIRAJ FROM SURGERY THAT DAUGHTER DOES NOT WANT A WOUND VAC ON PATIENTS FOOT.
--- NOTE | 2019-07-02 11:20 | NUR ---
NOTIFIED DR. RUIZ OF PATIENTS WOUND CULTURE PRELIM RESULTS. NO NEW ORDERS RECEIVED. WILL CONTINUE TO MONITOR.
--- NOTE | 2019-07-02 11:42 | NUR ---
In to see patient to discuss possible discharge plans including LTACH option, however patient was out of room for surgery.
--- NOTE | 2019-07-02 13:00 | NUR ---
NOTIFIED PATIENTS DAUGHTER PATIENT IS BACK FROM SURGERY.
--- NOTE | 2019-07-02 13:33 | NUR ---
NOTIFIED INFECTION DIEASE OF NEW CONSULT.
--- NOTE | 2019-07-02 14:48 | NUR ---
In to see patient with JEREMIAS Garcia to discuss option of LTACH. Patient was pleasant and asked if he could discuss with his daughter. Will follow
--- NOTE | 2019-07-02 15:25 | NUR ---
JOSEFINA DE OLIVEIRA CALLED BACK FOR INFECTIOUS DISEASE. NO NEW ORDERS RECEIVED. WILL CONTINUE TO MONITOR.
--- NOTE | 2019-07-02 19:40 | NUR ---
PATIENT IS RESTING IN BED WITH EASY AND REGULAR RESPERS ON ROOM AIR. ASSESSMENT IS COMPLETE WITH NO C/O OR S/S OF DISTRESS NOTED AT THIS TIME. BED IS LOW, LOCKED, AND CALL LIGHT IS WITHIN REACH. WILL CONTINUE TO MONITOR, SEE SHIFT ASSESSMENT.
--- NOTE | 2019-07-02 21:45 | NUR ---
PRN XANAX GIVEN AT THIS TIME FOR C/O INSOMNIA. CALL LIGHT IS WITHIN REACH, WILL MONITOR EFFECT.
[2019-07-03] VITALS (9 sets, daily range): BP systolic 90–108; BP diastolic 42–62
--- NOTE | 2019-07-03 00:13 | NUR ---
PATIENT AWAKENED EASILY FOR ADMINISTRATION OF PRN TYLENOL FOR TEMP OF 100.9. CALL LIGHT IS WITHIN REACH, WILL MONITOR EFFECT.
--- NOTE | 2019-07-03 02:45 | NUR ---
24 HR. CHART CHECK COMPLETE.
[2019-07-03 07:26] LABS: BASO % 0.2 % (0.0-1.0); EOS # 0.2 10*3/uL (0.0-0.4); EOS % 2.6 % (1.0-4.0); HEMATOCRIT 25.6 % (42.0-52.0); HEMOGLOBIN 7.7 g/dl (14.0-18.0); LYMPH # 1.4 10*3/uL (1.3-4.4); LYMPH % 15.9 % (27.0-41.0); MEAN CELL VOLUME 97.7 fl (80.0-94.0); MEAN CORPUSCULAR HGB 29.4 pg (27.0-31.0); MEAN CORPUSCULAR HGB CONC 30.1 g/dl (33.0-37.0); MEAN PLATELET VOLUME 9.5 fl (9.6-12.3); MONO # 1.2 10*3/uL (0.1-1.0); MONO % 13.3 % (3.0-9.0); NEUT # 6.1 10*3/uL (2.3-7.9); NEUT % 67.6 % (47.0-73.0); PLATELET COUNT AUTOMATED 206 10*3/uL (130-400); RED BLOOD COUNT 2.62 10*6/uL (4.50-5.90); RED CELL DISTRI WIDTH 16.5 % (0-14.5)
[2019-07-03 07:43] LABS: ALBUMIN 1.7 gm/dl (3.1-4.5); CREATININE 5.02 mg/dL (0.70-1.30); PHOSPHOROUS 5.6 mg/dL (2.5-4.9); POTASSIUM 3.3 mmol/L (3.5-5.1)
[2019-07-03 16:07] LABS: ACID FAST SPEC PROCESSING Tissue Grinding (.)
[2019-07-03 16:07] LABS: ACID FAST SPEC PROCESSING Tissue Grinding (.)
--- NOTE | 2019-07-03 22:46 | NUR ---
PT REQUESTING XANEX. MEDICATED WITH PRN XANEX ORDERED FOR ANXIETY. WILL CHECK EFFECTIVENESS. CALL LIGHT WITHIN REACH.
--- NOTE | 2019-07-03 23:40 | NUR ---
PT STATES XANEX WAS EFFECTIVE. WILL MONITOR.
[2019-07-04] VITALS: BP 96/54
--- NOTE | 2019-07-04 02:42 | NUR ---
24 HR chart check completed.
--- NOTE | 2019-07-04 04:31 | NUR ---
Patient sleeping. Respirations relaxed and easy. Siderails up . [place] on. No signs of distress noted. Will continue to monitor. HANK MARTINEZ
--- NOTE | 2019-07-04 05:45 | NUR ---
PT RIPPED OUT IV. NEW IV INSERTED INTO RAC. FLUSHED WITH SALINE. PATIENT TOLERATED WELL.
[2019-07-04 08:00] VITALS: BP 104/54
--- NOTE | 2019-07-04 10:26 | NUR ---
XANAX GIVEN FOR C/O ANXIETY. WILL MONITOR.
--- NOTE | 2019-07-04 11:30 | NUR ---
XANAX EFFECTIVE PER PT.
[2019-07-04 12:00] VITALS: BP 112/50
[2019-07-04 16:00] VITALS: BP 100/51
--- NOTE | 2019-07-04 19:30 | NUR ---
RECEIVED REPORT FROM CONTRERAS CHAVEZ. IN TO SEE PATIENT. DIALYSIS CALLED ME WHILE IN THE PATIENTS ROOM AND SAID HE COULD BE SENT UP. PATIENT STATES HE WAS NOT GOING TO DIALYSIS BECAUSE HE WASN'T GOING TO BE THERE UNTIL MIDNIGHT AND HE DIDN'T WANT TO GO THIS LATE. PT WAS EDUCATED ON IMPORTANCE OF GOING TO DIALYSIS AND THE CONSEQUENSES OF NOT GOING. PT STILL REFUSING.
[2019-07-04 20:00] VITALS: BP 152/71
--- NOTE | 2019-07-04 20:42 | NUR ---
INFORMED PT REFUSING TO GO TO DIALYSIS. DIALYSIS NURSE IN TO TALK TO PATIENT AND EDUCATED PATIENT ON IMPORTANCE. PATIENT STILL REFUSED.
--- NOTE | 2019-07-04 22:17 | NUR ---
PATIENT REQUESTING XANEX. MEDICATED WITH PRN XANEX ODERED FOR ANXIETY. WILL CHECK EFFECTIVENESS. CALL LIGHT IN REACH.
--- NOTE | 2019-07-04 23:15 | NUR ---
PATIENT STATES XANEX WAS EFFECTIVE. WILL CONTINUE TO MONITOR.
[2019-07-05] VITALS: BP 114/53
--- NOTE | 2019-07-05 03:56 | NUR ---
PT REQUESTING SOMETHING FOR PAIN FOR RIGHT FOOT PAIN RATED 9/10. MEDICATED WITH PRN MORPHINE ORDERED. WILL CHECK EFFECTIVENESS. CALL LIGHT WITHIN REACH.
--- NOTE | 2019-07-05 04:15 | NUR ---
PT STATED PAIN MED WAS EFFECTIVE RATING PAIN A 5/10 NOW. WILL CONTINUE TO MONITOR.
--- NOTE | 2019-07-05 05:00 | NUR ---
24 HR chart check completed.
[2019-07-05 06:08] LABS: CREATININE 6.73 mg/dL (0.70-1.30)
[2019-07-05 06:10] LABS: BASO % 0.3 % (0.0-1.0); EOS # 0.3 10*3/uL (0.0-0.4); EOS % 4.3 % (1.0-4.0); HEMATOCRIT 26.4 % (42.0-52.0); LYMPH # 1.4 10*3/uL (1.3-4.4); LYMPH % 17.8 % (27.0-41.0); MEAN CELL VOLUME 98.5 fl (80.0-94.0); MEAN CORPUSCULAR HGB 29.9 pg (27.0-31.0); MEAN CORPUSCULAR HGB CONC 30.3 g/dl (33.0-37.0); MEAN PLATELET VOLUME 9.6 fl (9.6-12.3); MONO # 0.9 10*3/uL (0.1-1.0); MONO % 11.7 % (3.0-9.0); NEUT % 65.5 % (47.0-73.0); PLATELET COUNT AUTOMATED 212 10*3/uL (130-400); RED BLOOD COUNT 2.68 10*6/uL (4.50-5.90); RED CELL DISTRI WIDTH 16.3 % (0-14.5); WHITE BLOOD COUNT 7.6 10*3/uL (4.8-10.8)
--- NOTE | 2019-07-05 07:34 | NUR ---
MORPHINE GIVEN PER ORDERAS FOR C/O RT FOOT PAIN. RATES 10/10 ON PAIN SCALE. WILL MONITOR.
[2019-07-05 08:00] VITALS: BP 108/54
--- NOTE | 2019-07-05 08:00 | NUR ---
PT OFF FLOOR TO [facility].
--- NOTE | 2019-07-05 08:35 | NUR ---
MORPHINE NOT EFFECTIVE PER PT.
--- NOTE | 2019-07-05 10:00 | NUR ---
1000 MEDS WILL BE GVIEN AT A LATER TIME, PT IS IN [facility].
[2019-07-05 12:00] VITALS: BP 100/60
[2019-07-05] MEDS ORDERED: ERTAPENEM1 GM IV (14:06)
[2019-07-05] MEDS ORDERED: VANCO 1.51.5 GM/250 IV (14:13)
[2019-07-05 16:00] VITALS: BP 109/57
--- NOTE | 2019-07-05 19:30 | NUR ---
RECEIVED REPORT FROM NURSE SCOTT. IN TO SEE PATIENT. PATIENT HAD RIPPED IV OUT AND HAD BLOOD EVERYWHERE. NEW IV INSERTED AT THIS TIME SO PATIENT CAN GET HIS IV FLUIDS. PATIENT TOLERATED WELL. GOOD BLOOD RETURN, FLUSHED WITH NORMAL SALINE. IV FLUIDS HOOKED BACK UP AT THIS TIME. PATIENT STATES HE IS IN NO PAIN AND HAS NO COMPLAINTS. CALL LIGHT WITHIN REACH. WILL CONTINUE TO MONITOR.
[2019-07-05 20:00] VITALS: BP 119/52
--- NOTE | 2019-07-05 23:52 | NUR ---
PT RUNNING A TEMP OF 99.3 AND COMPLAINING OF FEELING WARM AND SWEATY. MEDICATED WITH PRN TYLENOL. WILL CHECK EFFECTIVENESS. CALL LIGHT WITHIN REACH.
[2019-07-06] VITALS: BP 114/63; BP 131/87
--- NOTE | 2019-07-06 02:53 | NUR ---
24 HR chart check completed.
[2019-07-06 06:46] LABS: BASO % 0.6 % (0.0-1.0); EOS # 0.3 10*3/uL (0.0-0.4); EOS % 4.7 % (1.0-4.0); HEMATOCRIT 28.6 % (42.0-52.0); HEMOGLOBIN 8.3 g/dl (14.0-18.0); LYMPH # 1.3 10*3/uL (1.3-4.4); LYMPH % 19.7 % (27.0-41.0); MEAN CELL VOLUME 99.3 fl (80.0-94.0); MEAN CORPUSCULAR HGB 28.8 pg (27.0-31.0); MEAN PLATELET VOLUME 9.3 fl (9.6-12.3); MONO # 0.8 10*3/uL (0.1-1.0); MONO % 12.5 % (3.0-9.0); NEUT # 3.9 10*3/uL (2.3-7.9); NEUT % 61.7 % (47.0-73.0); PLATELET COUNT AUTOMATED 227 10*3/uL (130-400); RED BLOOD COUNT 2.88 10*6/uL (4.50-5.90); RED CELL DISTRI WIDTH 16.5 % (0-14.5); WHITE BLOOD COUNT 6.3 10*3/uL (4.8-10.8)
[2019-07-06 06:57] LABS: CREATININE 4.29 mg/dL (0.70-1.30); POTASSIUM 4.2 mmol/L (3.5-5.1)
[2019-07-06 08:00] VITALS: BP 128/72
--- NOTE | 2019-07-06 09:00 | NUR ---
Patient resting quietly with no c/o discomfort. Respirations easy and regular. Vital signs stable. No overt distress. Continue to monitor the pt. DESIRAE ABEL
--- NOTE | 2019-07-06 10:59 | NUR ---
PRN MORPHINE GIVEN FOR COMPLAINTS OF PAIN TO THE R FOOT. PT RATED PAIN 6/10. WILL MONITOR FOR EFFECTIVENESS.
--- NOTE | 2019-07-06 11:41 | NUR ---
PT'S DAUGHTER EXPRESSES THAT SHE BELIEVES THAT THE PT CANNOT BE DISCHARGED HOME BY HIMSELF HE WOULD NOT BE ABLE TO TAKE CARE OF HIMSELF PROPERLY. SHE STATES THAT THERE WAS DISCUSSION ABOUT PLACEMENT BUT THAT THE PT IS SAYING THAT HE WANTS TO BE DISCHARGED HOME. DAUGHTER STATES THAT SHE WOULD LIKE TO SPEAK WITH PT'S DOCTORS. I INFORMED DR SELF THAT THE PT'S DAUGHTER WOULD LIKE TO SPEAK WITH THEM. DR SELF STATES THAT THEY WILL BE DOWN SHORTLY. CONTINUE TO MONITOR THE PT.
--- NOTE | 2019-07-06 11:50 | NUR ---
RE-EVALAUTED AT THIS TIME. PRN MORPHINE EFFECTIVE PER PT. CONITNUE TO MONITOR THE PT.
[2019-07-06 12:00] VITALS: BP 127/64
--- NOTE | 2019-07-06 12:56 | NUR ---
SPOKE WITH DIALYSIS NURSE ABOUT PT'S DIALYSIS SCHEDULE. PER STAFF THE PT IS NOW SUNDAY,SUNDAY,AND SUNDAY DIALYSIS. IF ANYTHING CHANGES WE ARE TO CALL THE ANSWERING SERVICE. CONTINUE TO MONITOR THE PT.
--- NOTE | 2019-07-06 15:00 | NUR ---
NURSE TO NURSE REPORT CALLED TO CONTRERAS SOW. PT READY FOR TRANSFER.
[2019-07-06 16:00] VITALS: BP 110/61
--- NOTE | 2019-07-06 17:30 | NUR ---
CALLED TO ROOM BY PA.PT UPSET AND ARGUING WITH STEVEN AND ADRIAN. PT REFUSED CHAIR AND REFUSED TO GET INTO BED AND WAS YELLING DEMANDING HIS WALKER.PT STATED AT THIS TIME "I HAVE TO GO WORK ON THE ROOF". NOTIFIED DR SHEIKH AND CALLED PT DAUGHTER. EXPLAINED TO THE PT THE DR ORDERED THAT HE WAS TO BE NON WEIGHT BEARING TO THE SURGICAL FOOT. EXPLAINED I WASN'T TRYING TO FIGHT AND I'M SORRY BUT WE HAVE TO FOLLOW POLICY. PT IRATE AND I WALKED FROM ROOM. DAUGHTER TRANSFERRED TO ROOM AND SPOKE TO PT VIA TELEPHONE.
--- NOTE | 2019-07-06 17:36 | NUR ---
MEDICATED WITH XANAX PER PRN ORDER TO ASSIST WITH AGITATION. WILL MONITOR FOR EFFECTIVENESS
[2019-07-06 20:00] VITALS: BP 124/36
--- NOTE | 2019-07-07 | NUR ---
PATIENT REFUSED VITAL SIGNS AT THIS TIME. VERY AGITATED AT PRESENT. DENIES COMPLAINTS OF PAIN OR DISCOMFORT. NO SIGNS OR SYMPTOMS OF DISTRESS NOTED. BED ALARM ON AND FUNCTIONING. WILL CONTINUE TO MONITOR. CALL LIGHT IN REACH.
--- NOTE | 2019-07-07 03:56 | NUR ---
24 HR chart check completed.
--- NOTE | 2019-07-07 04:23 | NUR ---
HEP LOCK LEAKING AND WILL NOT FLUSH. NEW 22G INSERTED INTO RIGHT ARM ON FIRST ATTEMPT WITHOUT DIFFICULTY. AREA CLEANSED WITH NS. PATIENT TOLERATED WELL. OLD HEP LOCK REMOVED FROM RIGHT AC. WILL CONTINUE TO MONITOR.
[2019-07-07 06:20] LABS: CREATININE 5.3 mg/dL (0.70-1.30); POTASSIUM 4.1 mmol/L (3.5-5.1)
--- NOTE | 2019-07-07 06:39 | NUR ---
MEDICATED WITH MORPHINE FOR COMPLAINTS OF RIGHT TOE PAIN. WILL MONITOR FOR EFFECTIVENESS.
[2019-07-07 08:00] VITALS: BP 107/59
--- NOTE | 2019-07-07 08:43 | NUR ---
case management received a call from patient's daughter Nguyen, she stated she spoke to patient and they [facility], discussed with her an LTAC and what they would offer to the patient, she stated she still wanted a referral to [facility] and would be in to visit patient and would talk with case management then
[2019-07-07] MEDS ORDERED: ELIQUIS5 M1 PO (11:34)
[2019-07-07 12:00] VITALS: BP 119/53
--- NOTE | 2019-07-07 12:08 | NUR ---
ALBINO and Tar Distillation Supervisor Moni spoke with the patient and patient family at bedside. ALBINO explained to the patient and family about [facility] taking a look at the patient clinicals. Due to the patient needed Ertapenum, [facility] will not accept him. Patient and patients family at bedside are agreeable to speak with Jose. -ALBINO Conn
--- NOTE | 2019-07-07 12:42 | NUR ---
CALL PLACED TO DR. DAVID CONWAY TO PATIENT UNABLE TO GET MIDLINE UNTIL CLEARANCE. AWAITING CALL BACK.
--- NOTE | 2019-07-07 13:17 | NUR ---
MESSAGE LEFT/PAGE SENT TO DR. HERNANDEZ IN REGARDS TO MIDLINE PLACEMENT PERMISSION. AWAITING CALL BACK.
--- NOTE | 2019-07-07 14:11 | NUR ---
Jose requested Clinical information to be sent to her. SENIOR PHP SOFTWARE DEVELOPER faxed demographics, HP, and MAR. -DARIEL ConnW
--- NOTE | 2019-07-07 14:34 | NUR ---
DR. HERNADNEZ RETURNED CALL, GOING TO CONTACT DR. BOJORQUEZ AND WILL CALL BACK.
--- NOTE | 2019-07-07 14:57 | NUR ---
DR. HERNANDEZ GAVE PERMISSION FOR [facility]. SPOKE WITH BRAD IN SURGERY UNABLE TO PLACE TODAY WILL DO SOMETIME TOMORROW MORNING.
--- NOTE | 2019-07-07 15:07 | NUR ---
case management contacted Ruthann from [facility] to inquire about the ortega of patient's iv antibiotics if he chose to return home, he would have the first week a $324 copay for ertapenem and $103 for the vancomycin, he also would have a daily charge of $30 a day for the iv supplies, this charge would continue for 6 weeks, Ruthann also stated that he would have increased charges to pay at the first of the year due to copays starting over, case management also spoke to pharmacist at [facility] regarding eliquis, this medication will cost the patient $287 a month, will notify hospitalist nurse director
--- NOTE | 2019-07-07 15:36 | NUR ---
Ruslan Vaca was in to speak with the patient and family. Patient and family are agreeable to [facility]. The plan is for the patient to be discharged between 10am and 11a for the patient to go to [facility] tomorrow 07/08/19 before the patient would receive dialysis. Tiffanie CHAIREZ Hospitalist Coordinator is aware. -ALBINO Conn
[2019-07-07 16:00] VITALS: BP 131/61
[2019-07-07 20:00] VITALS: BP 119/64
[2019-07-08] VITALS: BP 92/45
--- NOTE | 2019-07-08 03:30 | NUR ---
Patient resting quietly with no c/o discomfort. Respirations easy and regular. Vital signs stable. No overt distress. RYANN LOPEZ
--- NOTE | 2019-07-08 05:00 | NUR ---
Upon discharge recommend patient to follow up for wound care in outpatient setting continue current wound care orders at discharging facility.
[2019-07-08 05:56] LABS: CREATININE 6.16 mg/dL (0.70-1.30)
[2019-07-08 06:07] LABS: VANCOMYCIN TROUGH 21.9 ug/mL (10-20)
--- NOTE | 2019-07-08 06:23 | NUR ---
WALDO FARMER [id number] Please refer to the physician's history and physical for past medical history, comorbid conditions, and allergies. Diagnosis: TOE NECROSIS,GANGRENE,LACTIC ACIDOSIS Clarence Score: 18,LOW OR NO RISK WOUND DESCRIPTIONS: Dressing intact to right lower extremity. No strikethrough drainage noted. No odor noted at time of assessment. Patient stated he will follow up with Dr. Montano upon discharge. Per nurse caring for patient dressing is not to be removed per podiatry, Surface the patient is resting on: Isoflex SKIN PREVENTION RECOMMENDATION: 1. Pressure redistribution support surface as appropriate 2. Elevate heels 3. Remove boots/TEDS every shift and reapply 4. Head of bed 30 degrees as tolerated 5. Assess nutrition and hydration 6. Manage moisture 7. Avoid the use of containment devices while in bed 8. Use absorptive products on surfaces limit layers of linens on bed 9. Turn and reposition every 1-2 hours in bed and every 1 hour in chair as tolerated 10. Weight shifts every 15 minutes while up in chair 11. Offloading with pillows or device to keep heels elevated off bed 12. Monitor skin at least every shift 13. Inspect under medical devices twice a day WOUND TREATMENT RECOMMENDATIONS:
[2019-07-08 08:00] VITALS: BP 105/65
--- NOTE | 2019-07-08 09:00 | NUR ---
case management visits with patient, he will be discharged to [facility] today, social media content manager is working on discharge arrangements
--- NOTE | 2019-07-08 09:11 | NUR ---
Spoke with Dr. Serrano regarding wound care recommendations she stated it was ok to put them in.
--- NOTE | 2019-07-08 10:13 | NUR ---
WADER BOOT TOP ASSEMBLER received notice of patient discharge today. WADER BOOT TOP ASSEMBLER reached out to [facility] Ambulette services. They are unable to transport til 4pm today. WADER BOOT TOP ASSEMBLER spoke with Jose. WADER BOOT TOP ASSEMBLER spoke with daughter Myra, she is able to transport the patient to day at noon to [facility]. Jose requested all clinical updates including HEP panel. WADER BOOT TOP ASSEMBLER contacted [facility] and had them fax over most recent HEP panel. WADER BOOT TOP ASSEMBLER faxed clinicals to Jose. -ALBINO Conn
--- NOTE | 2019-07-08 11:33 | NUR ---
NITRILES LAB TECHNICIAN received message from LenoreNola " said they will not follow at [facility]". " "Zan is refusing for anyone else to follow and will not round at [facility]- even though him and 4 of his fellow docs have privileges". Ruslan stated her FOURDRINIER MACHINE TENDER is making phone calls to try and get this resolved. NITRILES LAB TECHNICIAN contacted the patients daughter Nguyen and informed her of this issue. [facility]. NITRILES LAB TECHNICIAN informed Septic Tank Service Technician Moni, and RN Deirdre. -ALBINO Conn
[2019-07-08 12:00] VITALS: BP 113/62
--- NOTE | 2019-07-08 12:54 | NUR ---
NEW ACCOUNT INTERVIEWER spoke with Jose. Everything has been resolved patient is able to go to [facility]. NEW ACCOUNT INTERVIEWER contacted patients daughter Nguyen who stated she would be on her way to transport the patient. NEW ACCOUNT INTERVIEWER faxed copies of the patients scripts and discharge orders to [facility]. -ALBINO Conn
--- NOTE | 2019-07-08 13:17 | NUR ---
PATIENT DISCHARGED TO [facility]. ALL PERSONAL BELONGINGS SENT WITH PATIENT. IV IN RIGHT WRIST DISCONTINUED. [facility] IN [place] INTACT. DISCHARGE PACKET GIVEN TO DAUGHTER.
[2019-07-08 14:11] LABS: ORGANISM ID Final report (.)
[2019-07-08 14:11] LABS: ORGANISM ID Final report (.)
== END 2019-07-08 13:17 | DRG 616 ==
LOC: ED 15:11 → EDHOLD 17:11 → 4E 17:11 → 5E 17:11 → 4E 17:47 → 5E 07-06 14:51
PROVIDERS: Internal Medicine; Nurse Practitioner; Podiatrist; Podiatrist Foot & Ankle Surgery; ADMIT Internal Medicine
DX: E11.69 Type 2 diabetes mellitus with other specified complication (principal); E43 Unspecified severe protein-calorie malnutrition; I96 Gangrene, not elsewhere classified; M86.171 Other acute osteomyelitis, right ankle and foot; E87.1 Hypo-osmolality and hyponatremia; J96.11 Chronic respiratory failure with hypoxia; I50.32 Chronic diastolic (congestive) heart failure; I13.2 Hypertensive heart and chronic kidney disease with heart failure and with stage 5 chronic kidney disease, or end stage renal disease; M86.671 Other chronic osteomyelitis, right ankle and foot; E11.52 Type 2 diabetes mellitus with diabetic peripheral angiopathy with gangrene; N18.6 End stage renal disease; I82.442 Acute embolism and thrombosis of left tibial vein; I82.491 Acute embolism and thrombosis of other specified deep vein of right lower extremity; B96.4 Proteus (mirabilis) (morganii) as the cause of diseases classified elsewhere; B95.62 Methicillin resistant Staphylococcus aureus infection as the cause of diseases classified elsewhere; M10.9 Gout, unspecified; E87.6 Hypokalemia; E11.42 Type 2 diabetes mellitus with diabetic polyneuropathy; Z96.653 Presence of artificial knee joint, bilateral; E11.621 Type 2 diabetes mellitus with foot ulcer; L97.519 Non-pressure chronic ulcer of other part of right foot with unspecified severity; D63.8 Anemia in other chronic diseases classified elsewhere; D53.9 Nutritional anemia, unspecified; S93.121A Dislocation of metatarsophalangeal joint of right great toe, initial encounter; E83.39 Other disorders of phosphorus metabolism; E87.8 Other disorders of electrolyte and fluid balance, not elsewhere classified; E53.8 Deficiency of other specified B group vitamins; E11.22 Type 2 diabetes mellitus with diabetic chronic kidney disease; I48.91 Unspecified atrial fibrillation; F41.9 Anxiety disorder, unspecified; S93.141A Subluxation of metatarsophalangeal joint of right great toe, initial encounter; X58.XXXA Exposure to other specified factors, initial encounter; Y93.89 Activity, other specified; Y92.89 Other specified places as the place of occurrence of the external cause; Y99.8 Other external cause status; Z99.2 Dependence on renal dialysis; Z91.041 Radiographic dye allergy status; Z82.49 Family history of ischemic heart disease and other diseases of the circulatory system; Z90.49 Acquired absence of other specified parts of digestive tract; Z83.3 Family history of diabetes mellitus; Z79.899 Other long term (current) drug therapy; Z68.25 Body mass index [BMI] 25.0-25.9, adult

== ENCOUNTER → 2020-11-26 | Outpatient (CLI) | payer OTHER ==
[~2020-11-26] MED LIST changes: +AUGMENTIN 875875 MG PO; +ELIQUIS5 M1 PO; +ERTAPENEM1 GM IV; +VANCO 1.51.5 GM/250 IV; +ZESTRIL10 MG PO
== END | disposition home or self-care (01) ==
LOC: LAB 09:20
PROVIDERS: ATTEND Specialist
DX: I48.91 Unspecified atrial fibrillation (principal); Z79.01 Long term (current) use of anticoagulants